=== PATIENT | male | born 1960 | race African-American/Black ===

== ENCOUNTER 2018-08-19 15:15 | Inpatient (IN) | payer OTHER ==
[2018-08-19] MEDS ORDERED: PANTOPRAZOLE 40 MG/10 ML VIAL IVP STA (15:18)
[2018-08-19] MEDS ORDERED: ONDANSETRON 4 MG/2 ML VIAL IVP STA (15:18)
[2018-08-19] MEDS ORDERED: SODIUM CHLORIDE 0.9% 1,000 ML IV STA ×3 (15:18→16:09)
[2018-08-19 15:24] LABS: Glucose,Whole Blood 353 mg/dL (75-99)
--- NOTE | 2018-08-19 15:31 | ED ---
Syncope HPI - General Stated Complaint: Syncope/Vomiting Blood Time Seen by Provider: 08/19/18 15:18 Source: patient, RN notes reviewed, old records reviewed Mode of arrival: EMS Limitations: no limitations - History of Present Illness Initial Comments: This is a 58-year-old male to the ER for evaluation. Patient presents today for evaluation regards to weakness lightheadedness dizziness or syncopal event. Patient has history of recent ulcer disease with surgery, surgery was upper GI patient is not on blood thinners, denies any chest pain or shortness of breath, no current abdominal pain. No headaches. She does admit to a few alcoholic beverages piper ADAM Complaint: loss of consciousness, collapsed -: hour(s) Prodromal Symptoms: heart racing, diaphoresis -: second(s) Witnessed: no Injuries Sustained Associated with Event: None Current Symptoms: none History: other Context: at rest Treatments Prior to Arrival: none - Related Data Home Medications Medication Instructions Recorded Confirmed Albuterol Inhaler [Ventolin Hfa 2 puff INHALATION RT-Q6H PRN 08/19/18 08/19/18 Inhaler] Ferrous Sulfate [Iron (65 MG 325 mg PO BID 08/19/18 08/19/18 Elemental)] Finasteride [Proscar] 5 mg PO DAILY 08/19/18 08/19/18 QUEtiapine [SEROquel] 50 mg PO HS 08/19/18 08/19/18 Terazosin HCl 8 mg PO HS 08/19/18 08/19/18 metFORMIN HCL 500 mg PO BID 08/19/18 08/19/18 predniSONE 10 mg PO DAILY 08/19/18 08/19/18 Previous Rx's Medication Instructions Recorded Pantoprazole Sodium [Protonix] 40 mg PO DAILY #30 tablet. 08/22/18 Allergies Allergy/AdvReac Type Severity Reaction Status Date / Time No Known Allergies Allergy Verified 08/19/18 16:06 Review of Systems ROS Statement: Those systems with pertinent positive or pertinent negative responses have been documented in the HPI. ROS Other: All systems not noted in ROS Statement are negative. Past Medical History Past Medical History: GERD/Reflux Additional Past Medical History / Comment(s): STOMACH ULCER Past Surgical History: Unable to Obtain Past Psychological History: Unable to Obtain Smoking Status: Unknown if ever smoked Past Alcohol Use History: Occasional Past Drug Use History: Unable to Obtain - Past Family History Father Family Medical History: Diabetes Mellitus Additional Family Medical History / Comment(s): Father from diabetic complications at the age of 62 yrs. Mother Family Medical History: COPD General Exam Limitations: no limitations General appearance: alert, in no apparent distress Head exam: Present: atraumatic, normocephalic, normal inspection Eye exam: Present: normal appearance, PERRL, EOMI. Absent: scleral icterus, conjunctival injection, periorbital swelling ENT exam: Present: normal exam, mucous membranes dry Neck exam: Present: normal inspection. Absent: tenderness, meningismus, lymphadenopathy Respiratory exam: Present: normal lung sounds bilaterally. Absent: respiratory distress, wheezes, rales, rhonchi, stridor Cardiovascular Exam: Present: normal rhythm, tachycardia, normal heart sounds. Absent: systolic murmur, diastolic murmur, rubs, gallop, clicks GI/Abdominal exam: Present: soft, normal bowel sounds. Absent: distended, tenderness, guarding, rebound, rigid Extremities exam: Present: normal inspection, full ROM, normal capillary refill. Absent: tenderness, pedal edema, joint swelling, calf tenderness Back exam: Present: normal inspection Neurological exam: Present: alert, oriented X3, CN II-XII intact Psychiatric exam: Present: normal affect, normal mood Skin exam: Present: warm, dry, intact, normal color. Absent: rash Course Vital Signs 08/19/18 08/19/18 08/19/18 15:17 15:56 16:00 Temperature 97.8 F Pulse Rate 109 H 98 94 Respiratory 12 15 15 Rate Blood Pressure 71/43 84/51 84/51 O2 Sat by Pulse 100 100 99 Oximetry 08/19/18 08/19/18 08/19/18 16:30 16:50 17:00 Temperature Pulse Rate 98 97 Respiratory 16 Rate Blood Pressure 84/51 91/60 85/51 O2 Sat by Pulse 96 95 Oximetry 08/19/18 08/19/18 08/19/18 17:30 18:30 19:00 Temperature 97.8 F Pulse Rate 97 97 101 H Respiratory 20 20 Rate Blood Pressure 73/44 84/48 97/60 O2 Sat by Pulse 95 99 Oximetry 08/19/18 08/19/18 08/19/18 19:04 19:14 19:30 Temperature 97.9 F 97.8 F Pulse Rate 106 H 112 H 105 H Respiratory 16 18 Rate Blood Pressure 84/74 76/52 76/52 O2 Sat by Pulse Oximetry 08/19/18 08/19/18 08/19/18 20:00 20:30 21:10 Temperature 98 F Pulse Rate 107 H 111 H 126 H Respiratory 16 28 H Rate Blood Pressure 97/50 92/74 115/75 O2 Sat by Pulse 94 L 97 Oximetry 08/19/18 08/19/18 08/19/18 21:25 22:00 23:38 Temperature 98.1 F 98.9 F 102.9 F H Pulse Rate 124 H 126 H 141 H Respiratory 24 24 40 H Rate Blood Pressure 107/77 118/63 105/61 O2 Sat by Pulse 100 100 99 Oximetry 08/20/18 08/20/18 08/20/18 01:00 02:51 03:00 Temperature 101.6 F H 101.2 F H Pulse Rate 130 H 140 H 142 H Respiratory 20 Rate Blood Pressure 95/61 89/47 89/47 O2 Sat by Pulse 99 100 99 Oximetry 08/20/18 08/20/18 08/20/18 04:00 05:00 07:42 Temperature 98.8 F Pulse Rate 131 H 133 H 125 H Respiratory 28 H 22 Rate Blood Pressure 81/49 107/76 95/55 O2 Sat by Pulse 95 100 96 Oximetry 08/20/18 08/20/18 08/20/18 08:45 09:00 11:00 Temperature 98.4 F 98.6 F Pulse Rate 120 H 126 H 123 H Respiratory 18 18 Rate Blood Pressure 115/77 108/66 O2 Sat by Pulse 94 L 94 L 92 L Oximetry 08/20/18 08/20/18 08/20/18 12:00 13:00 13:04 Temperature Pulse Rate 128 H 112 H 120 H Respiratory Rate Blood Pressure 109/64 112/56 O2 Sat by Pulse 97 98 Oximetry 08/20/18 08/20/18 08/20/18 13:14 14:00 15:00 Temperature Pulse Rate 118 H 122 H 123 H Respiratory 28 H Rate Blood Pressure 122/71 127/69 O2 Sat by Pulse 95 96 Oximetry - Reevaluation(s) Reevaluation #1: Record is reviewed patient's heart rate and blood pressures responsive to fluid challenge Patient's at this time states he feels much improved Blood pressure continues to be labile patient will be transfused EKG Findings - EKG Comments: EKG Findings:: EKG shows sinus tachycardia rate 121, NV 120, QRS 80, QTC 471 Medical Decision Making - Medical Decision Making 38 male the ER for evaluation of recent history of known ulcer disease with vomiting blood. [facility] During this event patient became very lightheaded and passed out, patient's but was brought in by EMS, patient was found to have low hemoglobin and asymptomatic , patient will be transfused and admitted for intensive care monitoring - Lab Data Result diagrams: 08/22/18 06:48 08/22/18 06:48 Lab Results 08/19/18 08/19/18 08/19/18 Range/Units 15:20 15:20 15:20 WBC 15.7 H (3.8-10.6) k/uL RBC 2.32 L (4.30-5.90) m/uL Hgb 7.1 L (13.0-17.5) gm/dL Hct 22.9 L (39.0-53.0) % MCV 98.6 (80.0-100.0) fL MCH 30.7 (25.0-35.0) pg MCHC 31.1 (31.0-37.0) g/dL RDW 14.3 (11.5-15.5) % Plt Count 376 (150-450) k/uL Neutrophils % 62 % Lymphocytes % 32 % Monocytes % 4 % Eosinophils % 1 % Basophils % 0 % Neutrophils # 9.7 H (1.3-7.7) k/uL Lymphocytes # 5.0 H (1.0-4.8) k/uL Monocytes # 0.6 (0-1.0) k/uL Eosinophils # 0.1 (0-0.7) k/uL Basophils # 0.0 (0-0.2) k/uL Manual Slide Review Performed Polychromasia Present Hypochromasia Slight Poikilocytosis (manual Present Sodium 133 L (137-145) mmol/L Potassium 4.0 (3.5-5.1) mmol/L Chloride 104 (98-107) mmol/L Carbon Dioxide 12 L (22-30) mmol/L Anion Gap 17 mmol/L BUN 21 H (9-20) mg/dL Creatinine 1.49 H (0.66-1.25) mg/dL Est GFR (CKD-EPI)AfAm 60 (>60 ml/min/1.73 sqM) Est GFR (CKD-EPI)NonAf 52 (>60 ml/min/1.73 sqM) Glucose 331 H (74-99) mg/dL POC Glucose (mg/dL) (75-99) mg/dL POC Glu Gran[employer] ID Calcium 8.5 (8.4-10.2) mg/dL Magnesium 1.9 (1.6-2.3) mg/dL Total Bilirubin 0.2 (0.2-1.3) mg/dL AST 22 (17-59) U/L ALT 17 L (21-72) U/L Alkaline Phosphatase 64 (38-126) U/L Total Creatine Kinase 106 (55-170) U/L CK-MB (CK-2) 0.9 (0.0-2.4) ng/mL CK-MB (CK-2) Rel Index 0.8 Troponin I <0.012 (0.000-0.034) ng/mL Total Protein 4.8 L (6.3-8.2) g/dL Albumin 2.7 L (3.5-5.0) g/dL Lipase 114 (23-300) U/L Urine Color Urine Appearance (Clear) Urine pH (5.0-8.0) Ur Specific [employer] (1.001-1.035) Urine Protein (Negative) Urine Glucose (UA) (Negative) Urine Ketones (Negative) Urine Blood (Negative) Urine Nitrite (Negative) Urine Bilirubin (Negative) Urine Urobilinogen (<2.0) mg/dL Ur Leukocyte Esterase (Negative) Urine Opiates Screen (NotDetected) Ur Oxycodone Screen (NotDetected) Urine Methadone Screen (NotDetected) Ur Propoxyphene Screen (NotDetected) Ur Barbiturates Screen (NotDetected) U Tricyclic Antidepress (NotDetected) Ur Phencyclidine Scrn (NotDetected) Ur Amphetamines Screen (NotDetected) U Methamphetamines Scrn (NotDetected) U Benzodiazepines Scrn (NotDetected) Urine Cocaine Screen (NotDetected) U Marijuana (THC) Screen (NotDetected) Acetone, Qual (Negative) Blood Type Blood Type Recheck Antibody Screen Crossmatch Spec Expiration Date 08/19/18 08/19/18 08/19/18 Range/Units 15:20 15:20 15:23 WBC (3.8-10.6) k/uL RBC (4.30-5.90) m/uL Hgb (13.0-17.5) gm/dL Hct (39.0-53.0) % MCV (80.0-100.0) fL MCH (25.0-35.0) pg MCHC (31.0-37.0) g/dL RDW (11.5-15.5) % Plt Count (150-450) k/uL Neutrophils % % Lymphocytes % % Monocytes % % Eosinophils % % Basophils % % Neutrophils # (1.3-7.7) k/uL Lymphocytes # (1.0-4.8) k/uL Monocytes # (0-1.0) k/uL Eosinophils # (0-0.7) k/uL Basophils # (0-0.2) k/uL Manual Slide Review Polychromasia Hypochromasia Poikilocytosis (manual Sodium (137-145) mmol/L Potassium (3.5-5.1) mmol/L Chloride (98-107) mmol/L Carbon Dioxide (22-30) mmol/L Anion Gap mmol/L BUN (9-20) mg/dL Creatinine (0.66-1.25) mg/dL Est GFR (CKD-EPI)AfAm (>60 ml/min/1.73 sqM) Est GFR (CKD-EPI)NonAf (>60 ml/min/1.73 sqM) Glucose (74-99) mg/dL POC Glucose (mg/dL) 353 H (75-99) mg/dL POC Glu [employer] ID Ridge, Shobha Calcium (8.4-10.2) mg/dL Magnesium (1.6-2.3) mg/dL Total Bilirubin (0.2-1.3) mg/dL AST (17-59) U/L ALT (21-72) U/L Alkaline Phosphatase (38-126) U/L Total Creatine Kinase (55-170) U/L CK-MB (CK-2) (0.0-2.4) ng/mL CK-MB (CK-2) Rel Index Troponin I (0.000-0.034) ng/mL Total Protein (6.3-8.2) g/dL Albumin (3.5-5.0) g/dL Lipase (23-300) U/L Urine Color Urine Appearance (Clear) Urine pH (5.0-8.0) Ur Specific [employer] (1.001-1.035) Urine Protein (Negative) Urine Glucose (UA) (Negative) Urine Ketones (Negative) Urine Blood (Negative) Urine Nitrite (Negative) Urine Bilirubin (Negative) Urine Urobilinogen (<2.0) mg/dL Ur Leukocyte Esterase (Negative) Urine Opiates Screen (NotDetected) Ur Oxycodone Screen (NotDetected) Urine Methadone Screen (NotDetected) Ur Propoxyphene Screen (NotDetected) Ur Barbiturates Screen (NotDetected) U Tricyclic Antidepress (NotDetected) Ur Phencyclidine Scrn (NotDetected) Ur Amphetamines Screen (NotDetected) U Methamphetamines Scrn (NotDetected) U Benzodiazepines Scrn (NotDetected) Urine Cocaine Screen (NotDetected) U Marijuana (THC) Screen (NotDetected) Acetone, Qual Negative (Negative) Blood Type A Positive Blood Type Recheck CABO Indicated Antibody Screen NEGATIVE Crossmatch See Detail Spec Expiration Date 08/22/2018231908/19/18 Range/Units 15:25 WBC (3.8-10.6) k/uL RBC (4.30-5.90) m/uL Hgb (13.0-17.5) gm/dL Hct (39.0-53.0) % MCV (80.0-100.0) fL MCH (25.0-35.0) pg MCHC (31.0-37.0) g/dL RDW (11.5-15.5) % Plt Count (150-450) k/uL Neutrophils % % Lymphocytes % % Monocytes % % Eosinophils % % Basophils % % Neutrophils # (1.3-7.7) k/uL Lymphocytes # (1.0-4.8) k/uL Monocytes # (0-1.0) k/uL Eosinophils # (0-0.7) k/uL Basophils # (0-0.2) k/uL Manual Slide Review Polychromasia Hypochromasia Poikilocytosis (manual Sodium (137-145) mmol/L Potassium (3.5-5.1) mmol/L Chloride (98-107) mmol/L Carbon Dioxide (22-30) mmol/L Anion Gap mmol/L BUN (9-20) mg/dL Creatinine (0.66-1.25) mg/dL Est GFR (CKD-EPI)AfAm (>60 ml/min/1.73 sqM) Est GFR (CKD-EPI)NonAf (>60 ml/min/1.73 sqM) Glucose (74-99) mg/dL POC Glucose (mg/dL) (75-99) mg/dL POC Glu [employer] ID Calcium (8.4-10.2) mg/dL Magnesium (1.6-2.3) mg/dL Total Bilirubin (0.2-1.3) mg/dL AST (17-59) U/L ALT (21-72) U/L Alkaline Phosphatase (38-126) U/L Total Creatine Kinase (55-170) U/L CK-MB (CK-2) (0.0-2.4) ng/mL CK-MB (CK-2) Rel Index Troponin I (0.000-0.034) ng/mL Total Protein (6.3-8.2) g/dL Albumin (3.5-5.0) g/dL Lipase (23-300) U/L Urine Color Light Yellow Urine Appearance Clear (Clear) Urine pH 5.5 (5.0-8.0) Ur Specific [employer] 1.012 (1.001-1.035) Urine Protein Negative (Negative) Urine Glucose (UA) 4+ H (Negative) Urine Ketones Negative (Negative) Urine Blood Negative (Negative) Urine Nitrite Negative (Negative) Urine Bilirubin Negative (Negative) Urine Urobilinogen <2.0 (<2.0) mg/dL Ur Leukocyte Esterase Negative (Negative) Urine Opiates Screen Detected H (NotDetected) Ur Oxycodone Screen Not Detected (NotDetected) Urine Methadone Screen Not Detected (NotDetected) Ur Propoxyphene Screen Not Detected (NotDetected) Ur Barbiturates Screen Not Detected (NotDetected) U Tricyclic Antidepress Not Detected (NotDetected) Ur Phencyclidine Scrn Not Detected (NotDetected) Ur Amphetamines Screen Not Detected (NotDetected) U Methamphetamines Scrn Not Detected (NotDetected) U Benzodiazepines Scrn Not Detected (NotDetected) Urine Cocaine Screen Detected H (NotDetected) U Marijuana (THC) Screen Not Detected (NotDetected) Acetone, Qual (Negative) Blood Type Blood Type Recheck Antibody Screen Crossmatch Spec Expiration Date - Radiology Data Radiology results: report reviewed (CTA chest is negative for acute disease), image reviewed Critical Care Time Critical Care Time: Yes Total Critical Care Time: 31 Disposition Clinical Impression: Vasovagal syncope, Anemia, GI bleed Disposition: ADMITTED IP TO THIS [facility] Condition: Fair Is patient prescribed a controlled substance at d/c from ED?: No
[2018-08-19 15:44] LABS: Appearance,Urine Clear (Clear); Bilirubin,Urine Negative (Negative); Blood,Urine Negative (Negative); Color,Urine Light Yellow; Glucose,Urine (UA) 4+ (Negative); Ketones,Urine Negative (Negative); Leukocyte Esterase,Urine Negative (Negative); Nitrite,Urine Negative (Negative); PH, Urine 5.5 (5.0-8.0); Protein,Urine Negative (Negative); Specific Gravity,Urine 1.012 (1.001-1.035); Urobilinogen,Urine <2.0 mg/dL (<2.0)
[2018-08-19 15:45] LABS: Basophils % (A) 0 %; Eosinophils # (A) 0.1 k/uL (0-0.7); Eosinophils % (A) 1 %; HCT 22.9 % (39.0-53.0); HGB 7.1 gm/dL (13.0-17.5); Hypochromasia Slight; Lymphocytes % (A) 32 %; MCH 30.7 pg (25.0-35.0); MCHC 31.1 g/dL (31.0-37.0); MCV 98.6 fL (80.0-100.0); Mean Platelet Volume 6.8; Monocytes # (A) 0.6 k/uL (0-1.0); Monocytes % (A) 4 %; Neutrophils # (A) 9.7 k/uL (1.3-7.7); Neutrophils % (A) 62 %; Platelet Count 376 k/uL (150-450); RBC 2.32 m/uL (4.30-5.90); RDW 14.3 % (11.5-15.5); WBC 15.7 k/uL (3.8-10.6)
[2018-08-19 15:55] LABS: Albumin 2.7 g/dL (3.5-5.0); Calcium 8.5 mg/dL (8.4-10.2); Magnesium 1.9 mg/dL (1.6-2.3); Total Bilirubin 0.2 mg/dL (0.2-1.3); Total Protein 4.8 g/dL (6.3-8.2)
[2018-08-19 15:56] LABS: Cocaine Screen,Urine Detected (NotDetected); Phencyclidine Screen,Urine Not Detected (NotDetected); Urn Cannabinoid Scrn Not Detected (NotDetected)
[2018-08-19 15:56] LABS: Creatine Kinase 106 U/L (55-170)
[2018-08-19 15:57] LABS: Amphetamine Screen,Urine Not Detected (NotDetected); Barbiturate Screen,Urine Not Detected (NotDetected); Benzodiazepines Screen,Urine Not Detected (NotDetected); Methadone Screen, Urine Not Detected (NotDetected); Opiate Screen,Urine Detected (NotDetected); Oxycodone Screen, Urine Not Detected (NotDetected); Tricyclic Antidepressant,Urine Not Detected (NotDetected)
[2018-08-19] MEDS ORDERED: SODIUM CHLORIDE 0.9% 500 ML 500 ML IV STA (16:09)
[2018-08-19 16:10] LABS: Creatine Kinase MB 0.9 ng/mL (0.0-2.4); Troponin I <0.012 ng/mL (0.000-0.034)
[2018-08-19] MEDS ORDERED: INSULIN REGULAR 100 UNIT/ML VIAL IV ONE (16:22)
[2018-08-19 16:42] LABS: Poikilocytosis (M) Present; Polychromasia Present
[2018-08-19] MEDS ORDERED: SODIUM CHLORIDE 0.9% 1,000 ML IV ONE (17:26)
[2018-08-19] MEDS ORDERED: ONDANSETRON 4 MG/2 ML VIAL IVP PRN (17:26)
[2018-08-19 18:37] LABS: Glucose,Whole Blood 263 mg/dL (75-99)
--- NOTE | 2018-08-19 18:38 | CT ---
EXAMINATION TYPE: CT angio chest DATE OF EXAM: 08/19/2018 6:16 PM COMPARISON: None HISTORY: syncope CT DLP: 280.8 mGycm Automated exposure control for dose reduction was used. CONTRAST: CTA scan of the thorax is performed with IV Contrast, patient injected with 75 mL of Isovue 370, pulm onary embolism protocol. There are 3-D post processed images.. FINDINGS: There is a dilated fluid-filled esophagus. There is coarse interstitial infiltrates throughout the jimmy ngs there is also bullous pulmonary emphysema. Thoracic aorta is intact without evidence of aneurysm or dissection. Stomach is dilated. There is coalescent infiltrate at the lung bases. There is no lalo cardial effusion. Heart is probably enlarged. I see no filling defects in the pulmonary arteries. The bony thorax is intact. IMPRESSION: NO EVIDENCE OF PULMONARY EMBOLISM. EXTENSIVE PULMONARY INFILTRATES COULD RELATE TO RDS. EMPHYSEMA. DILATED STOMACH AND ESOPHAGUS. THIS COULD RELATE TO SOME SIGNIFICANT GASTROPARESIS AND REFLUX..
[2018-08-19] MEDS ORDERED: PANTOPRAZOLE 40 MG/10 ML VIAL IVP ONE (18:45)
--- NOTE | 2018-08-19 18:47 | P.HPIM ---
History of Present Illness H&P Date: 08/19/18 Chief Complaint: Presyncope This is a 58-year-old male who presented to the emergency room with presyncope. History was provided by patient and his at bedside. Patient's informed me that they are visiting from [place]. Patient was recently hospitalized a few days ago on Thursday at the hospital and was counseled for an upper GI bleed where he underwent an EGD per his and she is not aware exactly of the findings. She was told that they ''fixed the problem''. Patient was visiting in town today and was still having dark stool ongoing since his discharge. Today, he had 2 margaritas and subsequently he started vomiting with bright red blood with his vomitus. He almost lost consciousness and he was brought to the emergency room for further evaluation. In the emergency room, patient was found to be in hemorrhagic shock with blood pressure of 70/40. He was evaluated by the ER physician. Patient was complaining of chest pain that twelve-lead EKG showed sinus tachycardia with no acute ischemic changes. ER physician elected to send the patient for a CT angiogram of the chest that the report is still pending. Upon my evaluation, patient is obviously in hemorrhagic shock. He is tachycardic with heart rate up to 140. Nursing staff or having hard time obtaining blood sample. I ordered 2 units of blood transfusion. I asked the covering ER physician for assistance insert a central line for better IV access. Patient placement will be changed to intensive care unit instead of the telemetry floor. Patient himself denies any abdominal pain. He denies substance abuse even though his urine toxicology screen was positive for cocaine. When asked his permission to talk about his head from his he gave me permission and then I confronted him that his urine was positive for cocaine that patient still denies. He admits however that he had 2 alcoholic drinks today. Review of Systems Review of system: 14 points review of systems were obtained and were negative except to what were mentioned in the HPI. Past Medical History Past Medical History: GERD/Reflux Additional Past Medical History / Comment(s): STOMACH ULCER Past Surgical History: Unable to Obtain Past Psychological History: Unable to Obtain Smoking Status: Unknown if ever smoked Past Alcohol Use History: Occasional Past Drug Use History: Unable to Obtain Medications and Allergies Home Medications Medication Instructions Recorded Confirmed Type Albuterol Inhaler [Ventolin Hfa 2 puff INHALATION RT-Q6H PRN 08/19/18 08/19/18 History Inhaler] Cyclobenzaprine [Flexeril] 10 mg PO BID 08/19/18 08/19/18 History Ferrous Sulfate [Feosol] 325 mg PO BID 08/19/18 08/19/18 History Finasteride [Proscar] 5 mg PO DAILY 08/19/18 08/19/18 History Lisinopril-Hctz 10-12.5 mg 1 tab PO DAILY 08/19/18 08/19/18 History [Zestoretic 10-12.5] Metoprolol Tartrate [Lopressor] 25 mg PO DAILY 08/19/18 08/19/18 History QUEtiapine [SEROquel] 50 mg PO HS 08/19/18 08/19/18 History Terazosin HCl 8 mg PO HS 08/19/18 08/19/18 History metFORMIN HCL 500 mg PO BID 08/19/18 08/19/18 History predniSONE 10 mg PO DAILY 08/19/18 08/19/18 History Allergies Allergy/AdvReac Type Severity Reaction Status Date / Time No Known Allergies Allergy Verified 08/19/18 16:06 Physical Exam Vitals: Vital Signs Temp Pulse Resp BP Pulse Ox 08/19/18 17:00 97 85/51 95 08/19/18 16:50 91/60 08/19/18 16:30 98 16 84/51 96 08/19/18 16:00 94 15 84/51 99 08/19/18 15:56 98 15 84/51 100 08/19/18 15:17 97.8 F 109 H 12 71/43 100 Intake and Output 08/19/18 08/19/18 08/19/18 06:59 14:59 22:59 Other: Weight 71.214 kg General: The patient is awake and alert, in no distress Eye: there is normal conjunctiva bilaterally. Neck: The neck is supple, there is no JVD. Cardiovascular: Normal S1-S2, no S3-S4, no murmurs. Respiratory: Lungs clear to auscultation bilaterally Gastrointestinal: Abdomen is slightly distended, nontender Musculoskeletal: There is no pedal edema. Neurological:. Speech is normal. Skin: Skin is warm and dry Results CBC & Chem 7: 08/19/18 15:20 08/19/18 15:20 Labs: Abnormal Lab Results - Last 24 Hours (Table) 08/19/18 08/19/18 08/19/18 Range/Units 15:20 15:20 15:20 WBC 15.7 H (3.8-10.6) k/uL RBC 2.32 L (4.30-5.90) m/uL Hgb 7.1 L (13.0-17.5) gm/dL Hct 22.9 L (39.0-53.0) % Neutrophils # 9.7 H (1.3-7.7) k/uL Lymphocytes # 5.0 H (1.0-4.8) k/uL Sodium 133 L (137-145) mmol/L Carbon Dioxide 12 L (22-30) mmol/L BUN 21 H (9-20) mg/dL Creatinine 1.49 H (0.66-1.25) mg/dL Glucose 331 H (74-99) mg/dL POC Glucose (mg/dL) (75-99) mg/dL ALT 17 L (21-72) U/L Total Protein 4.8 L (6.3-8.2) g/dL Albumin 2.7 L (3.5-5.0) g/dL Urine Glucose (UA) (Negative) Urine Opiates Screen (NotDetected) Urine Cocaine Screen (NotDetected) Crossmatch See Detail 08/19/18 08/19/18 Range/Units 15:23 15:25 WBC (3.8-10.6) k/uL RBC (4.30-5.90) m/uL Hgb (13.0-17.5) gm/dL Hct (39.0-53.0) % Neutrophils # (1.3-7.7) k/uL Lymphocytes # (1.0-4.8) k/uL Sodium (137-145) mmol/L Carbon Dioxide (22-30) mmol/L BUN (9-20) mg/dL Creatinine (0.66-1.25) mg/dL Glucose (74-99) mg/dL POC Glucose (mg/dL) 353 H (75-99) mg/dL ALT (21-72) U/L Total Protein (6.3-8.2) g/dL Albumin (3.5-5.0) g/dL Urine Glucose (UA) 4+ H (Negative) Urine Opiates Screen Detected H (NotDetected) Urine Cocaine Screen Detected H (NotDetected) Crossmatch Assessment and Plan Assessment: 1. Upper GI bleed 2. Hemorrhagic shock 3. Acute blood loss anemia 4. Acute kidney injury 5. History of peptic ulcer disease with recent EGD a week ago in [place]. We will reduce request medical record 6. History of essential hypertension 7. Type 2 diabetes we will continue sliding scale insulin 8. Substance abuse including cocaine Today, I have seen, evaluated, and examined the patient in the emergency room. I discussed the patient's condition with consultants including the roofer gypsum, GI, and general surgery. I requested the covering ER physician to help inserting a central line for better IV access. Patient has 2 peripheral IV currently. I ordered 2 units of blood transfusion. We will repeat hemoglobin after blood transfusion. Patient has already received one-time dose of IV Protonix 40 mg. I would give him an additional 40 mg now and continue twice daily after work. Protonix drip not available in this hospital. Patient received 3 L of fluid in the emergency room so far. Nothing by mouth for now. I would order computed tomography scan of the abdomen without contrast to be done after patient received blood transfusion Patient placement would be changed to intensive care unit. Today, I discussed the patient's condition with himself and his . I updated him that he is in a critical condition. I answered all of his questions a satisfaction.
--- NOTE | 2018-08-19 19:14 | XR ---
EXAMINATION TYPE: XR chest 1V portable DATE OF EXAM: 08/19/2018 COMPARISON: NONE HISTORY: Check line placement TECHNIQUE: Single frontal view of the chest is obtained. FINDINGS: There is right jugular catheter with the tip over the right atrium. There is no pneumothor ax. There is some patchy airspace infiltrate in the lower lung arvizu. There is no gross heart failur e. There is coarsening of the lung markings. IMPRESSION: Pulmonary fibrosis. Infiltrates at the lung bases. No gross heart failure. No pneumothor ax.
[2018-08-19 19:20] LABS: Prothrombin Time 9.6 sec (9.0-12.0)
[2018-08-19 19:26] LABS: Partial Thromboplastin Time 18.9 sec (22.0-30.0)
--- NOTE | 2018-08-19 19:31 | ED ---
Medical Decision Making - Lab Data Result diagrams: 08/19/18 15:20 08/19/18 15:20 Lab Results 08/19/18 08/19/18 08/19/18 Range/Units 15:20 15:20 15:20 WBC 15.7 H (3.8-10.6) k/uL RBC 2.32 L (4.30-5.90) m/uL Hgb 7.1 L (13.0-17.5) gm/dL Hct 22.9 L (39.0-53.0) % MCV 98.6 (80.0-100.0) fL MCH 30.7 (25.0-35.0) pg MCHC 31.1 (31.0-37.0) g/dL RDW 14.3 (11.5-15.5) % Plt Count 376 (150-450) k/uL Neutrophils % 62 % Lymphocytes % 32 % Monocytes % 4 % Eosinophils % 1 % Basophils % 0 % Neutrophils # 9.7 H (1.3-7.7) k/uL Lymphocytes # 5.0 H (1.0-4.8) k/uL Monocytes # 0.6 (0-1.0) k/uL Eosinophils # 0.1 (0-0.7) k/uL Basophils # 0.0 (0-0.2) k/uL Manual Slide Review Performed Polychromasia Present Hypochromasia Slight Poikilocytosis (manual Present Sodium 133 L (137-145) mmol/L Potassium 4.0 (3.5-5.1) mmol/L Chloride 104 (98-107) mmol/L Carbon Dioxide 12 L (22-30) mmol/L Anion Gap 17 mmol/L BUN 21 H (9-20) mg/dL Creatinine 1.49 H (0.66-1.25) mg/dL Est GFR (CKD-EPI)AfAm 60 (>60 ml/min/1.73 sqM) Est GFR (CKD-EPI)NonAf 52 (>60 ml/min/1.73 sqM) Glucose 331 H (74-99) mg/dL POC Glucose (mg/dL) (75-99) mg/dL POC Glu Casing Mixer ID Calcium 8.5 (8.4-10.2) mg/dL Magnesium 1.9 (1.6-2.3) mg/dL Total Bilirubin 0.2 (0.2-1.3) mg/dL AST 22 (17-59) U/L ALT 17 L (21-72) U/L Alkaline Phosphatase 64 (38-126) U/L Total Creatine Kinase 106 (55-170) U/L CK-MB (CK-2) 0.9 (0.0-2.4) ng/mL CK-MB (CK-2) Rel Index 0.8 Troponin I <0.012 (0.000-0.034) ng/mL Total Protein 4.8 L (6.3-8.2) g/dL Albumin 2.7 L (3.5-5.0) g/dL Lipase 114 (23-300) U/L Urine Color Urine Appearance (Clear) Urine pH (5.0-8.0) Ur Specific Marshall (1.001-1.035) Urine Protein (Negative) Urine Glucose (UA) (Negative) Urine Ketones (Negative) Urine Blood (Negative) Urine Nitrite (Negative) Urine Bilirubin (Negative) Urine Urobilinogen (<2.0) mg/dL Ur Leukocyte Esterase (Negative) Urine Opiates Screen (NotDetected) Ur Oxycodone Screen (NotDetected) Urine Methadone Screen (NotDetected) Ur Propoxyphene Screen (NotDetected) Ur Barbiturates Screen (NotDetected) U Tricyclic Antidepress (NotDetected) Ur Phencyclidine Scrn (NotDetected) Ur Amphetamines Screen (NotDetected) U Methamphetamines Scrn (NotDetected) U Benzodiazepines Scrn (NotDetected) Urine Cocaine Screen (NotDetected) U Marijuana (THC) Screen (NotDetected) Acetone, Qual (Negative) Blood Type Blood Type Recheck Antibody Screen Crossmatch Spec Expiration Date 08/19/18 08/19/18 08/19/18 Range/Units 15:20 15:20 15:23 WBC (3.8-10.6) k/uL RBC (4.30-5.90) m/uL Hgb (13.0-17.5) gm/dL Hct (39.0-53.0) % MCV (80.0-100.0) fL MCH (25.0-35.0) pg MCHC (31.0-37.0) g/dL RDW (11.5-15.5) % Plt Count (150-450) k/uL Neutrophils % % Lymphocytes % % Monocytes % % Eosinophils % % Basophils % % Neutrophils # (1.3-7.7) k/uL Lymphocytes # (1.0-4.8) k/uL Monocytes # (0-1.0) k/uL Eosinophils # (0-0.7) k/uL Basophils # (0-0.2) k/uL Manual Slide Review Polychromasia Hypochromasia Poikilocytosis (manual Sodium (137-145) mmol/L Potassium (3.5-5.1) mmol/L Chloride (98-107) mmol/L Carbon Dioxide (22-30) mmol/L Anion Gap mmol/L BUN (9-20) mg/dL Creatinine (0.66-1.25) mg/dL Est GFR (CKD-EPI)AfAm (>60 ml/min/1.73 sqM) Est GFR (CKD-EPI)NonAf (>60 ml/min/1.73 sqM) Glucose (74-99) mg/dL POC Glucose (mg/dL) 353 H (75-99) mg/dL POC Glu Casing Mixer ID Shobha Sabillon Calcium (8.4-10.2) mg/dL Magnesium (1.6-2.3) mg/dL Total Bilirubin (0.2-1.3) mg/dL AST (17-59) U/L ALT (21-72) U/L Alkaline Phosphatase (38-126) U/L Total Creatine Kinase (55-170) U/L CK-MB (CK-2) (0.0-2.4) ng/mL CK-MB (CK-2) Rel Index Troponin I (0.000-0.034) ng/mL Total Protein (6.3-8.2) g/dL Albumin (3.5-5.0) g/dL Lipase (23-300) U/L Urine Color Urine Appearance (Clear) Urine pH (5.0-8.0) Ur Specific Marshall (1.001-1.035) Urine Protein (Negative) Urine Glucose (UA) (Negative) Urine Ketones (Negative) Urine Blood (Negative) Urine Nitrite (Negative) Urine Bilirubin (Negative) Urine Urobilinogen (<2.0) mg/dL Ur Leukocyte Esterase (Negative) Urine Opiates Screen (NotDetected) Ur Oxycodone Screen (NotDetected) Urine Methadone Screen (NotDetected) Ur Propoxyphene Screen (NotDetected) Ur Barbiturates Screen (NotDetected) U Tricyclic Antidepress (NotDetected) Ur Phencyclidine Scrn (NotDetected) Ur Amphetamines Screen (NotDetected) U Methamphetamines Scrn (NotDetected) U Benzodiazepines Scrn (NotDetected) Urine Cocaine Screen (NotDetected) U Marijuana (THC) Screen (NotDetected) Acetone, Qual Negative (Negative) Blood Type A Positive Blood Type Recheck CABO Indicated Antibody Screen NEGATIVE Crossmatch See Detail Spec Expiration Date 08/22/2018 - 231908/19/18 Range/Units 15:25 WBC (3.8-10.6) k/uL RBC (4.30-5.90) m/uL Hgb (13.0-17.5) gm/dL Hct (39.0-53.0) % MCV (80.0-100.0) fL MCH (25.0-35.0) pg MCHC (31.0-37.0) g/dL RDW (11.5-15.5) % Plt Count (150-450) k/uL Neutrophils % % Lymphocytes % % Monocytes % % Eosinophils % % Basophils % % Neutrophils # (1.3-7.7) k/uL Lymphocytes # (1.0-4.8) k/uL Monocytes # (0-1.0) k/uL Eosinophils # (0-0.7) k/uL Basophils # (0-0.2) k/uL Manual Slide Review Polychromasia Hypochromasia Poikilocytosis (manual Sodium (137-145) mmol/L Potassium (3.5-5.1) mmol/L Chloride (98-107) mmol/L Carbon Dioxide (22-30) mmol/L Anion Gap mmol/L BUN (9-20) mg/dL Creatinine (0.66-1.25) mg/dL Est GFR (CKD-EPI)AfAm (>60 ml/min/1.73 sqM) Est GFR (CKD-EPI)NonAf (>60 ml/min/1.73 sqM) Glucose (74-99) mg/dL POC Glucose (mg/dL) (75-99) mg/dL POC Glu Casing Mixer ID Calcium (8.4-10.2) mg/dL Magnesium (1.6-2.3) mg/dL Total Bilirubin (0.2-1.3) mg/dL AST (17-59) U/L ALT (21-72) U/L Alkaline Phosphatase (38-126) U/L Total Creatine Kinase (55-170) U/L CK-MB (CK-2) (0.0-2.4) ng/mL CK-MB (CK-2) Rel Index Troponin I (0.000-0.034) ng/mL Total Protein (6.3-8.2) g/dL Albumin (3.5-5.0) g/dL Lipase (23-300) U/L Urine Color Light Yellow Urine Appearance Clear (Clear) Urine pH 5.5 (5.0-8.0) Ur Specific Marshall 1.012 (1.001-1.035) Urine Protein Negative (Negative) Urine Glucose (UA) 4+ H (Negative) Urine Ketones Negative (Negative) Urine Blood Negative (Negative) Urine Nitrite Negative (Negative) Urine Bilirubin Negative (Negative) Urine Urobilinogen <2.0 (<2.0) mg/dL Ur Leukocyte Esterase Negative (Negative) Urine Opiates Screen Detected H (NotDetected) Ur Oxycodone Screen Not Detected (NotDetected) Urine Methadone Screen Not Detected (NotDetected) Ur Propoxyphene Screen Not Detected (NotDetected) Ur Barbiturates Screen Not Detected (NotDetected) U Tricyclic Antidepress Not Detected (NotDetected) Ur Phencyclidine Scrn Not Detected (NotDetected) Ur Amphetamines Screen Not Detected (NotDetected) U Methamphetamines Scrn Not Detected (NotDetected) U Benzodiazepines Scrn Not Detected (NotDetected) Urine Cocaine Screen Detected H (NotDetected) U Marijuana (THC) Screen Not Detected (NotDetected) Acetone, Qual (Negative) Blood Type Blood Type Recheck Antibody Screen Crossmatch Spec Expiration Date Disposition Clinical Impression: Vasovagal syncope, Anemia, GI bleed Disposition: ADMITTED IP TO THIS [facility] Condition: Serious Procedures - Central Line Placement Right IJ Consent Obtained: written consent Time Out Performed: Yes Patient Placed on Monitor/Pulse Ox: Yes MD Prep: mask, gown, gloves, other Central Line Prep: Chlorhexidine scrub Local Anesthesia Used: Lidocaine 1% Amount of Anesthesia Used (mls): 3 Ultrasound Used for Placement: Yes Central Line Lumen Inserted: triple Bloods Obtained for Lab: Yes Central Line Position: good blood return, all ports aspirated, flushed, capped, sutured in place with nylon Dressing Applied: Tegaderm Post Procedure X-Ray: tip of catheter in good position Patient Tolerated Procedure: well Complications: none
[2018-08-20] MEDS ORDERED: SODIUM CHLORIDE 0.9% 1,000 ML IV STA (00:26)
[2018-08-20 00:46] LABS: Anisocytosis Slight; MCH 30.1 pg (25.0-35.0); MCHC 33.2 g/dL (31.0-37.0); MCV 90.6 fL (80.0-100.0); Mean Platelet Volume 7.3; RDW 18.2 % (11.5-15.5)
[2018-08-20 00:52] LABS: HCT 26.3 % (39.0-53.0); HGB 8.7 gm/dL (13.0-17.5); Platelet Count 151 k/uL (150-450)
[2018-08-20 02:19] LABS: Band Neutrophils % 9 %; Monocytes # (M) 0.19 k/uL (0-1.0); Neutrophils % (M) 83 %; Nucleated Red Blood Cells 1 /100 WBC (0-0); Total Cells Counted 200
[2018-08-20 02:20] LABS: Lymphocytes # (M) 0.66 k/uL (1.0-4.8); WBC 9.4 k/uL (3.8-10.6)
[2018-08-20 02:21] LABS: Polychromasia Present
[2018-08-20] MEDS: PANTOPRAZOLE 40 MG/10 ML VIAL IVP SCH ×2 (06:51→17:43)
[2018-08-20 08:20] LABS: Glucose,Whole Blood 251 mg/dL (75-99)
[2018-08-20] MEDS: INSULIN ASPART 100 UNIT/ML 1 ML 10 ML VIAL SQ SCH ×6 (08:24→22:15)
[2018-08-20] MEDS ORDERED: PANTOPRAZOLE 40 MG/10 ML VIAL IVP SCH (09:00)
[2018-08-20] MEDS ORDERED: IPRATROPIUM-ALBUTEROL 3 ML NEB INHALATION PRN (09:10)
--- NOTE | 2018-08-20 09:27 | P.GSCN ---
History of Present Illness Consult date: 08/20/18 Reason for Consult: GI bleed History of present illness: This a 58-year-old male who is visiting from [place]. Patient states that he underwent EGD with some sort of intervention for GI bleed on Thursday it was constant. He then drove to [place] to see his family. The patient developed upper GI bleeding yesterday. He was resuscitated in the emergency room and received one unit of packed red cell. Apparently had a transfusion reaction with during his second packed red cell transfusion. Patient's had no further evidence of GI bleed. He denies any significant abdominal pain. Past Medical History Past Medical History: Asthma, COPD, GERD/Reflux, GI Bleed, Pneumonia, Prostate Disorder Additional Past Medical History / Comment(s): Pt is from [place], here with his spouse visiting their son. He was hospitatlized last week with peptic ulcer with upper GI bleed/dark stools ever since, IDDM type II, BPH, low back pain. History of Any Multi-Drug Resistant Organisms: None Reported Past Surgical History: Unable to Obtain Additional Past Surgical History / Comment(s): EGD one week ago in [place], colonoscopy 2013 which pt states was normal. Past Anesthesia/Blood Transfusion Reactions: No Reported Reaction Additional Past Anesthesia/Blood Transfusion Reaction / Comm: Pt received blood 08/19/18 without reaction. Smoking Status: Current every day smoker - Past Family History Father Family Medical History: Diabetes Mellitus Additional Family Medical History / Comment(s): Father from diabetic complications at the age of 62 yrs. Mother Family Medical History: COPD Medications and Allergies Home Medications Medication Instructions Recorded Confirmed Type Albuterol Inhaler [Ventolin Hfa 2 puff INHALATION RT-Q6H PRN 08/19/18 08/19/18 History Inhaler] Cyclobenzaprine [Flexeril] 10 mg PO BID 08/19/18 08/19/18 History Ferrous Sulfate [Feosol] 325 mg PO BID 08/19/18 08/19/18 History Finasteride [Proscar] 5 mg PO DAILY 08/19/18 08/19/18 History Lisinopril-Hctz 10-12.5 mg 1 tab PO DAILY 08/19/18 08/19/18 History [Zestoretic 10-12.5] Metoprolol Tartrate [Lopressor] 25 mg PO DAILY 08/19/18 08/19/18 History QUEtiapine [SEROquel] 50 mg PO HS 08/19/18 08/19/18 History Terazosin HCl 8 mg PO HS 08/19/18 08/19/18 History metFORMIN HCL 500 mg PO BID 08/19/18 08/19/18 History predniSONE 10 mg PO DAILY 08/19/18 08/19/18 History Allergies Allergy/AdvReac Type Severity Reaction Status Date / Time No Known Allergies Allergy Verified 08/19/18 16:06 Surgical - Exam Vital Signs Temp Pulse Resp BP Pulse Ox 97.8 F 109 H 12 71/43 100 08/19/18 15:17 08/19/18 15:17 08/19/18 15:17 08/19/18 15:17 08/19/18 15:17 - General well developed, no distress - Eyes PERRL - ENT normal pinna - Neck no masses - Respiratory normal expansion - Cardiovascular Rhythm: regular - Abdomen Abdomen: soft, non tender Results - Labs 08/20/18 00:31 08/19/18 15:20 Abnormal Lab Results - Last 24 Hours (Table) 08/19/18 08/19/18 08/19/18 Range/Units 15:20 15:20 15:20 WBC 15.7 H (3.8-10.6) k/uL RBC 2.32 L (4.30-5.90) m/uL Hgb 7.1 L (13.0-17.5) gm/dL Hct 22.9 L (39.0-53.0) % RDW (11.5-15.5) % Neutrophils # 9.7 H (1.3-7.7) k/uL Neutrophils # (Manual) (1.3-7.7) k/uL Lymphocytes # 5.0 H (1.0-4.8) k/uL Lymphocytes # (Manual) (1.0-4.8) k/uL Nucleated RBCs (0-0) /100 WBC APTT (22.0-30.0) sec Sodium 133 L (137-145) mmol/L Carbon Dioxide 12 L (22-30) mmol/L BUN 21 H (9-20) mg/dL Creatinine 1.49 H (0.66-1.25) mg/dL Glucose 331 H (74-99) mg/dL POC Glucose (mg/dL) (75-99) mg/dL ALT 17 L (21-72) U/L Total Protein 4.8 L (6.3-8.2) g/dL Albumin 2.7 L (3.5-5.0) g/dL Urine Glucose (UA) (Negative) Urine Opiates Screen (NotDetected) Urine Cocaine Screen (NotDetected) Crossmatch See Detail 08/19/18 08/19/18 08/19/18 Range/Units 15:23 15:25 18:33 WBC (3.8-10.6) k/uL RBC (4.30-5.90) m/uL Hgb (13.0-17.5) gm/dL Hct (39.0-53.0) % RDW (11.5-15.5) % Neutrophils # (1.3-7.7) k/uL Neutrophils # (Manual) (1.3-7.7) k/uL Lymphocytes # (1.0-4.8) k/uL Lymphocytes # (Manual) (1.0-4.8) k/uL Nucleated RBCs (0-0) /100 WBC APTT (22.0-30.0) sec Sodium (137-145) mmol/L Carbon Dioxide (22-30) mmol/L BUN (9-20) mg/dL Creatinine (0.66-1.25) mg/dL Glucose (74-99) mg/dL POC Glucose (mg/dL) 353 H 263 H (75-99) mg/dL ALT (21-72) U/L Total Protein (6.3-8.2) g/dL Albumin (3.5-5.0) g/dL Urine Glucose (UA) 4+ H (Negative) Urine Opiates Screen Detected H (NotDetected) Urine Cocaine Screen Detected H (NotDetected) Crossmatch 08/19/18 08/20/18 08/20/18 Range/Units 18:47 00:31 08:16 WBC (3.8-10.6) k/uL RBC 2.90 L (4.30-5.90) m/uL Hgb 8.7 L D (13.0-17.5) gm/dL Hct 26.3 L (39.0-53.0) % RDW 18.2 H (11.5-15.5) % Neutrophils # (1.3-7.7) k/uL Neutrophils # (Manual) 8.60 H (1.3-7.7) k/uL Lymphocytes # (1.0-4.8) k/uL Lymphocytes # (Manual) 0.66 L (1.0-4.8) k/uL Nucleated RBCs 1 H (0-0) /100 WBC APTT 18.9 L (22.0-30.0) sec Sodium (137-145) mmol/L Carbon Dioxide (22-30) mmol/L BUN (9-20) mg/dL Creatinine (0.66-1.25) mg/dL Glucose (74-99) mg/dL POC Glucose (mg/dL) 251 H (75-99) mg/dL ALT (21-72) U/L Total Protein (6.3-8.2) g/dL Albumin (3.5-5.0) g/dL Urine Glucose (UA) (Negative) Urine Opiates Screen (NotDetected) Urine Cocaine Screen (NotDetected) Crossmatch Diabetes panel 08/19/18 Range/Units 15:20 Sodium 133 L (137-145) mmol/L Potassium 4.0 (3.5-5.1) mmol/L Chloride 104 (98-107) mmol/L Carbon Dioxide 12 L (22-30) mmol/L BUN 21 H (9-20) mg/dL Creatinine 1.49 H (0.66-1.25) mg/dL Glucose 331 H (74-99) mg/dL Calcium 8.5 (8.4-10.2) mg/dL AST 22 (17-59) U/L ALT 17 L (21-72) U/L Alkaline Phosphatase 64 (38-126) U/L Total Protein 4.8 L (6.3-8.2) g/dL Albumin 2.7 L (3.5-5.0) g/dL Calcium panel 08/19/18 Range/Units 15:20 Calcium 8.5 (8.4-10.2) mg/dL Albumin 2.7 L (3.5-5.0) g/dL Pituitary panel 08/19/18 Range/Units 15:20 Sodium 133 L (137-145) mmol/L Potassium 4.0 (3.5-5.1) mmol/L Chloride 104 (98-107) mmol/L Carbon Dioxide 12 L (22-30) mmol/L BUN 21 H (9-20) mg/dL Creatinine 1.49 H (0.66-1.25) mg/dL Glucose 331 H (74-99) mg/dL Calcium 8.5 (8.4-10.2) mg/dL Adrenal panel 08/19/18 Range/Units 15:20 Sodium 133 L (137-145) mmol/L Potassium 4.0 (3.5-5.1) mmol/L Chloride 104 (98-107) mmol/L Carbon Dioxide 12 L (22-30) mmol/L BUN 21 H (9-20) mg/dL Creatinine 1.49 H (0.66-1.25) mg/dL Glucose 331 H (74-99) mg/dL Calcium 8.5 (8.4-10.2) mg/dL Total Bilirubin 0.2 (0.2-1.3) mg/dL AST 22 (17-59) U/L ALT 17 L (21-72) U/L Alkaline Phosphatase 64 (38-126) U/L Total Protein 4.8 L (6.3-8.2) g/dL Albumin 2.7 L (3.5-5.0) g/dL Assessment and Plan Plan: history of GI bleed. Patient will be evaluated by GI for possible EGD with intervention. We'll remain on surgical standby.
--- NOTE | 2018-08-20 10:23 | P.CONS ---
History of Present Illness - Reason for Consult Consult date: 08/20/18 Upper GI bleeding - History of Present Illness The patient is a 58-year-old male who was brought to the emergency room because of a fainting episode. The patient is from [place] and was visiting family in [place]. He started to vomit bright red blood and fainted and was brought to the emergency room for further evaluation. The patient was evaluated on Thursday back in [place] for upper GI bleeding and had an endoscopy with endoscopic intervention. The patient the denied alcohol dependency or use of any specific medications. He had 2 margaritas before the onset of his symptoms prior to arriving to the emergency room. Apparently there was positive cocaine in his urine. CTA of the chest showed no evidence of pulmonary embolism. The esophagus and stomach were noted to be dilated. The patient had stated in the emergency room overnight waiting his bed in the intensive care unit. He was transfused. His hemoglobin is stable this morning at 8.5. Review of Systems Constitutional: Denies fever, chills or unintentional weight loss Neurologic: History of headaches for which he takes NSAIDs, no double vision or sensory or motor changes Cardiopulmonary: No chest pains, shortness of breath or palpitations Gastrointestinal: See present illness above Genitourinary: No hematuria, dysuria or frequency Skin: No rashes Endocrine: No polyuria or polydipsia Musculoskeletal: No joint complaints or swelling Hematologic: No bleeding tendency Psychiatric: No history of anxiety or depression Past Medical History Past Medical History: Asthma, COPD, GERD/Reflux, GI Bleed, Pneumonia, Prostate Disorder Additional Past Medical History / Comment(s): Pt is from [place], here with his spouse visiting their son. He was hospitatlized last week with peptic ulcer with upper GI bleed/dark stools ever since, IDDM type II, BPH, low back pain. History of Any Multi-Drug Resistant Organisms: None Reported Past Surgical History: Unable to Obtain Additional Past Surgical History / Comment(s): EGD one week ago in [place], colonoscopy 2013 which pt states was normal. Past Anesthesia/Blood Transfusion Reactions: No Reported Reaction Additional Past Anesthesia/Blood Transfusion Reaction / Comm: Pt received blood 08/19/18 without reaction. Smoking Status: Current every day smoker - Past Family History Father Family Medical History: Diabetes Mellitus Additional Family Medical History / Comment(s): Father from diabetic complications at the age of 62 yrs. Mother Family Medical History: COPD Medications and Allergies Home Medications Medication Instructions Recorded Confirmed Type Albuterol Inhaler [Ventolin Hfa 2 puff INHALATION RT-Q6H PRN 08/19/18 08/19/18 History Inhaler] Cyclobenzaprine [Flexeril] 10 mg PO BID 08/19/18 08/19/18 History Ferrous Sulfate [Feosol] 325 mg PO BID 08/19/18 08/19/18 History Finasteride [Proscar] 5 mg PO DAILY 08/19/18 08/19/18 History Lisinopril-Hctz 10-12.5 mg 1 tab PO DAILY 08/19/18 08/19/18 History [Zestoretic 10-12.5] Metoprolol Tartrate [Lopressor] 25 mg PO DAILY 08/19/18 08/19/18 History QUEtiapine [SEROquel] 50 mg PO HS 08/19/18 08/19/18 History Terazosin HCl 8 mg PO HS 08/19/18 08/19/18 History metFORMIN HCL 500 mg PO BID 08/19/18 08/19/18 History predniSONE 10 mg PO DAILY 08/19/18 08/19/18 History Allergies Allergy/AdvReac Type Severity Reaction Status Date / Time No Known Allergies Allergy Verified 08/19/18 16:06 Physical Exam Vitals: Vital Signs Temp Pulse Resp BP Pulse Ox 08/20/18 09:00 98.6 F 126 H 18 115/77 94 L 08/20/18 08:45 98.4 F 120 H 18 94 L 08/20/18 07:42 98.8 F 125 H 22 95/55 96 08/20/18 05:00 133 H 28 H 107/76 100 08/20/18 04:00 131 H 81/49 95 08/20/18 03:00 142 H 89/47 99 08/20/18 02:51 101.2 F H 140 H 20 89/47 100 08/20/18 01:00 101.6 F H 130 H 95/61 99 08/19/18 23:38 102.9 F H 141 H 40 H 105/61 99 08/19/18 22:00 98.9 F 126 H 24 118/63 100 08/19/18 21:25 98.1 F 124 H 24 107/77 100 08/19/18 21:10 98 F 126 H 28 H 115/75 97 08/19/18 20:30 111 H 16 92/74 94 L 08/19/18 20:00 107 H 97/50 08/19/18 19:30 105 H 76/52 08/19/18 19:14 97.8 F 112 H 18 76/52 08/19/18 19:04 97.9 F 106 H 16 84/74 08/19/18 19:00 97.8 F 101 H 97/60 08/19/18 18:30 97 20 84/48 99 08/19/18 17:30 97 20 73/44 95 08/19/18 17:00 97 85/51 95 08/19/18 16:50 91/60 08/19/18 16:30 98 16 84/51 96 08/19/18 16:00 94 15 84/51 99 08/19/18 15:56 98 15 84/51 100 08/19/18 15:17 97.8 F 109 H 12 71/43 100 Intake and Output 08/19/18 08/20/18 08/20/18 22:59 06:59 14:59 Intake Total 310 310 Output Total 2300 Balance 310 310 -2300 Intake: Blood Product 310 310 Rc As-1 Unit 310 [id number] Rc As-3 Unit 0 310 [id number] Output: Urine 2300 Other: Weight 71.214 kg General: Appeared stated age, very pleasant in no acute distress Head and neck: Normocephalic and atraumatic, conjunctivae pink and sclerae not icteric, mucous membranes moist and pink. No masses in the neck or clavicular shifts Lungs: Clear to auscultation with no dullness to percussion Heart: Regular, no abnormal sounds, murmurs, gallops or friction Abdomen: Soft, no masses or organomegalies. No tenderness, bowel sounds present Extremities: No clubbing, cyanosis or edema Neurologic: Alert and oriented 3. Cranial nerves grossly intact. No gross sensory or motor abnormalities Results CBC & Chem 7: 08/20/18 11:01 08/20/18 11:01 Labs: Abnormal Lab Results - Last 24 Hours (Table) 08/19/18 08/19/18 08/19/18 Range/Units 15:20 15:20 15:20 WBC 15.7 H (3.8-10.6) k/uL RBC 2.32 L (4.30-5.90) m/uL Hgb 7.1 L (13.0-17.5) gm/dL Hct 22.9 L (39.0-53.0) % RDW (11.5-15.5) % Neutrophils # 9.7 H (1.3-7.7) k/uL Neutrophils # (Manual) (1.3-7.7) k/uL Lymphocytes # 5.0 H (1.0-4.8) k/uL Lymphocytes # (Manual) (1.0-4.8) k/uL Nucleated RBCs (0-0) /100 WBC APTT (22.0-30.0) sec Sodium 133 L (137-145) mmol/L Carbon Dioxide 12 L (22-30) mmol/L BUN 21 H (9-20) mg/dL Creatinine 1.49 H (0.66-1.25) mg/dL Glucose 331 H (74-99) mg/dL POC Glucose (mg/dL) (75-99) mg/dL ALT 17 L (21-72) U/L Total Protein 4.8 L (6.3-8.2) g/dL Albumin 2.7 L (3.5-5.0) g/dL Urine Glucose (UA) (Negative) Urine Opiates Screen (NotDetected) Urine Cocaine Screen (NotDetected) Crossmatch See Detail 08/19/18 08/19/18 08/19/18 Range/Units 15:23 15:25 18:33 WBC (3.8-10.6) k/uL RBC (4.30-5.90) m/uL Hgb (13.0-17.5) gm/dL Hct (39.0-53.0) % RDW (11.5-15.5) % Neutrophils # (1.3-7.7) k/uL Neutrophils # (Manual) (1.3-7.7) k/uL Lymphocytes # (1.0-4.8) k/uL Lymphocytes # (Manual) (1.0-4.8) k/uL Nucleated RBCs (0-0) /100 WBC APTT (22.0-30.0) sec Sodium (137-145) mmol/L Carbon Dioxide (22-30) mmol/L BUN (9-20) mg/dL Creatinine (0.66-1.25) mg/dL Glucose (74-99) mg/dL POC Glucose (mg/dL) 353 H 263 H (75-99) mg/dL ALT (21-72) U/L Total Protein (6.3-8.2) g/dL Albumin (3.5-5.0) g/dL Urine Glucose (UA) 4+ H (Negative) Urine Opiates Screen Detected H (NotDetected) Urine Cocaine Screen Detected H (NotDetected) Crossmatch 08/19/18 08/20/18 08/20/18 Range/Units 18:47 00:31 08:16 WBC (3.8-10.6) k/uL RBC 2.90 L (4.30-5.90) m/uL Hgb 8.7 L D (13.0-17.5) gm/dL Hct 26.3 L (39.0-53.0) % RDW 18.2 H (11.5-15.5) % Neutrophils # (1.3-7.7) k/uL Neutrophils # (Manual) 8.60 H (1.3-7.7) k/uL Lymphocytes # (1.0-4.8) k/uL Lymphocytes # (Manual) 0.66 L (1.0-4.8) k/uL Nucleated RBCs 1 H (0-0) /100 WBC APTT 18.9 L (22.0-30.0) sec Sodium (137-145) mmol/L Carbon Dioxide (22-30) mmol/L BUN (9-20) mg/dL Creatinine (0.66-1.25) mg/dL Glucose (74-99) mg/dL POC Glucose (mg/dL) 251 H (75-99) mg/dL ALT (21-72) U/L Total Protein (6.3-8.2) g/dL Albumin (3.5-5.0) g/dL Urine Glucose (UA) (Negative) Urine Opiates Screen (NotDetected) Urine Cocaine Screen (NotDetected) Crossmatch Assessment and Plan Assessment: Upper GI bleeding, recurrent, may need endoscopic intervention. Anemia secondary to bleeding. Plan: Will proceed with EGD today.
--- NOTE | 2018-08-20 11:28 | P.CNPUL ---
History of Present Illness Consult date: 08/20/18 Requesting physician: Sivlano Kemp Reason for consult: other Chief complaint: Presyncopal episode, tachycardia, anemia, acute GI bleed History of present illness: This is a 58-year-old male, who presented to the emergency department on 08/19/2018 for evaluation of presyncopal episode, tachycardia, diaphoresis. Patient is in the area from [place] visiting his family, was recently hospitalized [facility] for evaluation of acute blood loss anemia related to a gastric ulcer. He underwent EGD on Thursday08/16/2018, he stated a bleeding gastric ulcer was found, and it was reportedly "fixed". He had been having vomiting for 2 weeks prior to his hospitalization with bright red blood, and dark stools. He states he had been taking indomethacin for his history of arthritis for 2 years. Other medical history includes hypertension, diabetes mellitus type 2, COPD, nicotine dependence, chronic and ongoing, . Patient does see a grounds/maintenance specialist and [place], he wears 2 L of oxygen at bedtime as needed. Blood work showed WBC of 15.7, hemoglobin is 7.1, serum sodium 133, CO2 12, BUN of 21 and creatinine of 1.49. TRoponin was negative 1 , LFTs were unremarkable, urinalysis showed 4+ glucose, urine screen was positive for opiates, and cocaine. He denies any chronic EtOH use. In the emergency department she was transfused with 2 units of packed red blood cells, patient was tachycardic with a heart rate in the 140s BPM, and hypotensive with a blood pressure of 70/40, he was given 4 L of IV fluid boluses. Subsequent hemoglobin at midnight was 8.7. Patient was also febrile through the night, with a T-max of 102.[address] angios of the chest was negative for pulmonary embolism, but showed extensive pulmonary infiltrates throughout the lungs and bullous pulmonary emphysema. Chest x-ray showed pulmonary fibrosis, infiltrates at the lung bases. Patient does state he has pulmonary fibrosis. This morning patient was seen in the emergency department, resting on the gurney, denies any acute complaints, he remains tachycardic with a heart rate in the 120s, blood pressures are borderline 95/55, not requiring any vasopressor support at this time, denies any shortness of breath, chest pain, he has not had any solids of hematemesis, or melena since admission. Denies any abdominal pain, nausea. No cough, no chest congestion or phlegm production. No lightheadedness or dizziness. He is asking if he could make the trip home back to [place] today. He is awaiting to be evaluated by the GI specialist today and probably be boarded for EGD today. Review of Systems All systems: negative Constitutional: Denies chills, Denies fever Eyes: denies blurred vision, denies pain Ears, nose, mouth and throat: Denies headache, Denies sore throat Cardiovascular: Denies chest pain, Denies shortness of breath Respiratory: Reports home oxygen, Denies cough Gastrointestinal: Reports hematemesis, Reports melena, Denies abdominal pain, Denies diarrhea, Denies nausea, Denies vomiting Musculoskeletal: Denies myalgias Integumentary: Denies pruritus, Denies rash Neurological: Denies numbness, Denies weakness Psychiatric: Denies anxiety, Denies depression Endocrine: Denies fatigue, Denies weight change Past Medical History Past Medical History: Asthma, COPD, GERD/Reflux, GI Bleed, Pneumonia, Prostate Disorder Additional Past Medical History / Comment(s): Pt is from [place], here with his spouse visiting their son. He was hospitatlized last week with peptic ulcer with upper GI bleed/dark stools ever since, IDDM type II, BPH, low back pain. History of Any Multi-Drug Resistant Organisms: None Reported Past Surgical History: Unable to Obtain Additional Past Surgical History / Comment(s): EGD one week ago in [place], colonoscopy 2013 which pt states was normal. Past Anesthesia/Blood Transfusion Reactions: No Reported Reaction Additional Past Anesthesia/Blood Transfusion Reaction / Comment(s): Pt received blood 08/19/18 without reaction. Smoking Status: Current every day smoker - Past Family History Father Family Medical History: Diabetes Mellitus Additional Family Medical History / Comment(s): Father from diabetic complications at the age of 62 yrs. Mother Family Medical History: COPD Medications and Allergies Home Medications Medication Instructions Recorded Confirmed Type Albuterol Inhaler [Ventolin Hfa 2 puff INHALATION RT-Q6H PRN 08/19/18 08/19/18 History Inhaler] Cyclobenzaprine [Flexeril] 10 mg PO BID 08/19/18 08/19/18 History Ferrous Sulfate [Feosol] 325 mg PO BID 08/19/18 08/19/18 History Finasteride [Proscar] 5 mg PO DAILY 08/19/18 08/19/18 History Lisinopril-Hctz 10-12.5 mg 1 tab PO DAILY 08/19/18 08/19/18 History [Zestoretic 10-12.5] Metoprolol Tartrate [Lopressor] 25 mg PO DAILY 08/19/18 08/19/18 History QUEtiapine [SEROquel] 50 mg PO HS 08/19/18 08/19/18 History Terazosin HCl 8 mg PO HS 08/19/18 08/19/18 History metFORMIN HCL 500 mg PO BID 08/19/18 08/19/18 History predniSONE 10 mg PO DAILY 08/19/18 08/19/18 History Allergies Allergy/AdvReac Type Severity Reaction Status Date / Time No Known Allergies Allergy Verified 08/19/18 16:06 Physical Exam Vitals: Vital Signs Temp Pulse Resp BP Pulse Ox 08/20/18 07:42 98.8 F 125 H 22 95/55 96 08/20/18 05:00 133 H 28 H 107/76 100 08/20/18 04:00 131 H 81/49 95 08/20/18 03:00 142 H 89/47 99 08/20/18 02:51 101.2 F H 140 H 20 89/47 100 08/20/18 01:00 101.6 F H 130 H 95/61 99 08/19/18 23:38 102.9 F H 141 H 40 H 105/61 99 08/19/18 22:00 98.9 F 126 H 24 118/63 100 08/19/18 21:25 98.1 F 124 H 24 107/77 100 08/19/18 21:10 98 F 126 H 28 H 115/75 97 08/19/18 20:30 111 H 16 92/74 94 L 08/19/18 20:00 107 H 97/50 08/19/18 19:30 105 H 76/52 08/19/18 19:14 97.8 F 112 H 18 76/52 08/19/18 19:04 97.9 F 106 H 16 84/74 08/19/18 19:00 97.8 F 101 H 97/60 08/19/18 18:30 97 20 84/48 99 08/19/18 17:30 97 20 73/44 95 08/19/18 17:00 97 85/51 95 08/19/18 16:50 91/60 08/19/18 16:30 98 16 84/51 96 08/19/18 16:00 94 15 84/51 99 08/19/18 15:56 98 15 84/51 100 08/19/18 15:17 97.8 F 109 H 12 71/43 100 Intake and Output 08/19/18 08/20/18 08/20/18 22:59 06:59 14:59 Intake Total 310 310 Output Total 2300 Balance 310 310 -2300 Intake: Blood Product 310 310 Rc As-1 Unit 310 [id number] Rc As-3 Unit 0 310 [id number] Output: Urine 2300 Other: Weight 71.214 kg - Constitutional General appearance: no acute distress - EENT Eyes: EOMI - Neck Neck: no lymphadenopathy Thyroid: bilateral: normal size - Respiratory Respiratory: bilateral: diminished, rales - Cardiovascular Rhythm: regular Heart sounds: normal: S1, S2 ankle Peripheral Edema: absent: None foot Peripheral Edema: absent: None - Gastrointestinal General gastrointestinal: no organomegaly, soft, no tenderness - Integumentary Integumentary: normal turgor - Neurologic Neurologic: CNII-XII intact - Musculoskeletal Musculoskeletal: strength equal bilaterally - Psychiatric Psychiatric: A&O x's 3 Results - Laboratory Findings CBC and BMP: 08/20/18 00:31 08/19/18 15:20 PT/INR, D-dimer PT 9.6 sec (9.0-12.0) 08/19/18 18:47 INR 1.0 (<1.2) 08/19/18 18:47 Abnormal lab findings: Abnormal Labs 08/19/18 08/19/18 08/19/18 15:20 15:20 15:20 WBC 15.7 H RBC 2.32 L Hgb 7.1 L Hct 22.9 L RDW Neutrophils # 9.7 H Neutrophils # (Manual) Lymphocytes # 5.0 H Lymphocytes # (Manual) Nucleated RBCs APTT Sodium 133 L Carbon Dioxide 12 L BUN 21 H Creatinine 1.49 H Glucose 331 H POC Glucose (mg/dL) ALT 17 L Total Protein 4.8 L Albumin 2.7 L Urine Glucose (UA) Urine Opiates Screen Urine Cocaine Screen Crossmatch See Detail 08/19/18 08/19/18 08/19/18 15:23 15:25 18:33 WBC RBC Hgb Hct RDW Neutrophils # Neutrophils # (Manual) Lymphocytes # Lymphocytes # (Manual) Nucleated RBCs APTT Sodium Carbon Dioxide BUN Creatinine Glucose POC Glucose (mg/dL) 353 H 263 H ALT Total Protein Albumin Urine Glucose (UA) 4+ H Urine Opiates Screen Detected H Urine Cocaine Screen Detected H Crossmatch 08/19/18 08/20/18 08/20/18 18:47 00:31 08:16 WBC RBC 2.90 L Hgb 8.7 L D Hct 26.3 L RDW 18.2 H Neutrophils # Neutrophils # (Manual) 8.60 H Lymphocytes # Lymphocytes # (Manual) 0.66 L Nucleated RBCs 1 H APTT 18.9 L Sodium Carbon Dioxide BUN Creatinine Glucose POC Glucose (mg/dL) 251 H ALT Total Protein Albumin Urine Glucose (UA) Urine Opiates Screen Urine Cocaine Screen Crossmatch - Diagnostic Findings Chest x-ray: report reviewed, image reviewed CT scan - chest: report reviewed, image reviewed Additional studies: EKG reviewed Assessment and Plan Plan: Assessment: #1. Hemorrhagic shock related to acute blood loss anemia secondary to acute GI bleeding #2. Recent hospitalization for upper GI bleeding, status post EGD and cauterization of a gastric ulcer #3. Presyncopal episode, tachycardia, hypotension dated to the above #4. Advanced COPD, oxygen and steroid dependent #5. Nicotine dependence, chronic and ongoing, currently down to quarter pack a day, carries [id number] smoking history #6. Acute kidney injury #7. Anion gap metabolic acidosis #8. Hypertension #9. Diabetes mellitus type 2 #10. Rheumatoid arthritis, and patient had been on indomethacin for 2 years prior to last episode of GI bleed #11. History of pulmonary fibrosis Plan: Continue serial H&H's, continue IV Protonix, fluids infusing at 75 ML per hour, patient is awaiting a bed in the intensive care unit. GI service has been consulted. Patient did have some febrile episodes overnight, and CT chest showed interstitial infiltrates. Wean FiO2. Patient denies any shortness of breath, chest pain, cough, chest congestion. We will order nebulized bronchodilator and place the patient on IV Solu-Medrol at 40 mg every 8 hours. Chest x-ray and CT angios of the chest have been reviewed by Dr. Murillo, and there is evidence of interstitial lung disease, related to pulmonary fibrosis I performed a history & physical examination of the patient and discussed their management with my nurse practitioner, Swathi Reynaga. I reviewed the nurse practitioner's note and agree with the documented findings and plan of care. Lung sounds are coarse rales at the bases. The findings and the impression was discussed with the patient. I attest to the documentation by the nurse practitioner. Time with Patient: Greater than 30
[2018-08-20] MEDS ORDERED: methylPREDNISolone SOD SUCCI 40 MG/ML 1 ML VIAL IV SCH (11:30)
[2018-08-20 11:42] LABS: Anisocytosis Slight; Basophils # (A) 0.1 k/uL (0-0.2); Basophils % (A) 0 %; Eosinophils # (A) 0.1 k/uL (0-0.7); Eosinophils % (A) 0 %; HGB 9.2 gm/dL (13.0-17.5); Lymphocytes # (A) 1.9 k/uL (1.0-4.8); Lymphocytes % (A) 8 %; MCH 29.8 pg (25.0-35.0); MCHC 32.9 g/dL (31.0-37.0); MCV 90.5 fL (80.0-100.0); Mean Platelet Volume 6.9; Monocytes # (A) 0.7 k/uL (0-1.0); Monocytes % (A) 3 %; Neutrophils # (A) 20.5 k/uL (1.3-7.7); Neutrophils % (A) 88 %; Platelet Count 151 k/uL (150-450); Poikilocytosis Slight; RBC 3.09 m/uL (4.30-5.90); RDW 19.4 % (11.5-15.5); WBC 23.4 k/uL (3.8-10.6)
[2018-08-20 11:44] LABS: ALT 27 U/L (21-72); AST 34 U/L (17-59); Albumin 2.6 g/dL (3.5-5.0); Alkaline Phosphatase 59 U/L (38-126); Anion Gap 5 mmol/L; Blood Urea Nitrogen 25 mg/dL (9-20); Calcium 8.4 mg/dL (8.4-10.2); Carbon Dioxide 22 mmol/L (22-30); Chloride 112 mmol/L (98-107); Glucose 159 mg/dL (74-99); Magnesium 1.6 mg/dL (1.6-2.3); Potassium 3.9 mmol/L (3.5-5.1); Sodium 139 mmol/L (137-145); Total Bilirubin 1.2 mg/dL (0.2-1.3); Total Protein 4.8 g/dL (6.3-8.2)
--- NOTE | 2018-08-20 12:45 | P.PN ---
Subjective Progress Note Date: 08/20/18 Principal diagnosis: Hemorrhagic shock Patient is feeling better today. Blood pressure has improved. The status 2 units of blood transfusion. He remained tachycardic with heart rate up to 125. No bloody emesis or bowel movements since admission. Objective - Vital Signs Vital signs: Vital Signs Temp 98.6 F 08/20/18 09:00 Pulse 126 H 08/20/18 09:00 Resp 18 08/20/18 09:00 BP 115/77 08/20/18 09:00 Pulse Ox 94 L 08/20/18 09:00 Intake & Output 08/19/18 08/20/18 08/20/18 18:59 06:59 18:59 Intake Total 620 Output Total 2300 Balance 620 -2300 Weight 71.214 kg Intake: Blood Product 620 Rc As-1 Unit 310 [id number] Rc As-3 Unit 310 [id number] Output: Urine 2300 - Exam General: The patient is awake and alert, in no distress Eye: there is normal conjunctiva bilaterally. Neck: The neck is supple, there is no JVD. Cardiovascular: Normal S1-S2, no S3-S4, no murmurs. Respiratory: Lungs clear to auscultation bilaterally Gastrointestinal: Abdomen is soft, nontender Musculoskeletal: There is no pedal edema. Neurological:. Speech is normal. Skin: Skin is warm and dry - Labs CBC & Chem 7: 08/20/18 11:01 08/20/18 11:01 Labs: Abnormal Lab Results - Last 24 Hours (Table) 08/19/18 08/19/18 08/19/18 Range/Units 15:20 15:20 15:20 WBC 15.7 H (3.8-10.6) k/uL RBC 2.32 L (4.30-5.90) m/uL Hgb 7.1 L (13.0-17.5) gm/dL Hct 22.9 L (39.0-53.0) % RDW (11.5-15.5) % Neutrophils # 9.7 H (1.3-7.7) k/uL Neutrophils # (Manual) (1.3-7.7) k/uL Lymphocytes # 5.0 H (1.0-4.8) k/uL Lymphocytes # (Manual) (1.0-4.8) k/uL Nucleated RBCs (0-0) /100 WBC APTT (22.0-30.0) sec Sodium 133 L (137-145) mmol/L Chloride (98-107) mmol/L Carbon Dioxide 12 L (22-30) mmol/L BUN 21 H (9-20) mg/dL Creatinine 1.49 H (0.66-1.25) mg/dL Glucose 331 H (74-99) mg/dL POC Glucose (mg/dL) (75-99) mg/dL ALT 17 L (21-72) U/L Total Protein 4.8 L (6.3-8.2) g/dL Albumin 2.7 L (3.5-5.0) g/dL Urine Glucose (UA) (Negative) Urine Opiates Screen (NotDetected) Urine Cocaine Screen (NotDetected) Crossmatch See Detail 08/19/18 08/19/18 08/19/18 Range/Units 15:23 15:25 18:33 WBC (3.8-10.6) k/uL RBC (4.30-5.90) m/uL Hgb (13.0-17.5) gm/dL Hct (39.0-53.0) % RDW (11.5-15.5) % Neutrophils # (1.3-7.7) k/uL Neutrophils # (Manual) (1.3-7.7) k/uL Lymphocytes # (1.0-4.8) k/uL Lymphocytes # (Manual) (1.0-4.8) k/uL Nucleated RBCs (0-0) /100 WBC APTT (22.0-30.0) sec Sodium (137-145) mmol/L Chloride (98-107) mmol/L Carbon Dioxide (22-30) mmol/L BUN (9-20) mg/dL Creatinine (0.66-1.25) mg/dL Glucose (74-99) mg/dL POC Glucose (mg/dL) 353 H 263 H (75-99) mg/dL ALT (21-72) U/L Total Protein (6.3-8.2) g/dL Albumin (3.5-5.0) g/dL Urine Glucose (UA) 4+ H (Negative) Urine Opiates Screen Detected H (NotDetected) Urine Cocaine Screen Detected H (NotDetected) Crossmatch 08/19/18 08/20/18 08/20/18 Range/Units 18:47 00:31 08:16 WBC (3.8-10.6) k/uL RBC 2.90 L (4.30-5.90) m/uL Hgb 8.7 L D (13.0-17.5) gm/dL Hct 26.3 L (39.0-53.0) % RDW 18.2 H (11.5-15.5) % Neutrophils # (1.3-7.7) k/uL Neutrophils # (Manual) 8.60 H (1.3-7.7) k/uL Lymphocytes # (1.0-4.8) k/uL Lymphocytes # (Manual) 0.66 L (1.0-4.8) k/uL Nucleated RBCs 1 H (0-0) /100 WBC APTT 18.9 L (22.0-30.0) sec Sodium (137-145) mmol/L Chloride (98-107) mmol/L Carbon Dioxide (22-30) mmol/L BUN (9-20) mg/dL Creatinine (0.66-1.25) mg/dL Glucose (74-99) mg/dL POC Glucose (mg/dL) 251 H (75-99) mg/dL ALT (21-72) U/L Total Protein (6.3-8.2) g/dL Albumin (3.5-5.0) g/dL Urine Glucose (UA) (Negative) Urine Opiates Screen (NotDetected) Urine Cocaine Screen (NotDetected) Crossmatch 08/20/18 08/20/18 Range/Units 11:01 11:01 WBC 23.4 H (3.8-10.6) k/uL RBC 3.09 L (4.30-5.90) m/uL Hgb 9.2 L (13.0-17.5) gm/dL Hct 28.0 L (39.0-53.0) % RDW 19.4 H (11.5-15.5) % Neutrophils # 20.5 H (1.3-7.7) k/uL Neutrophils # (Manual) (1.3-7.7) k/uL Lymphocytes # (1.0-4.8) k/uL Lymphocytes # (Manual) (1.0-4.8) k/uL Nucleated RBCs (0-0) /100 WBC APTT (22.0-30.0) sec Sodium (137-145) mmol/L Chloride 112 H (98-107) mmol/L Carbon Dioxide (22-30) mmol/L BUN 25 H (9-20) mg/dL Creatinine (0.66-1.25) mg/dL Glucose 159 H (74-99) mg/dL POC Glucose (mg/dL) (75-99) mg/dL ALT (21-72) U/L Total Protein 4.8 L (6.3-8.2) g/dL Albumin 2.6 L (3.5-5.0) g/dL Urine Glucose (UA) (Negative) Urine Opiates Screen (NotDetected) Urine Cocaine Screen (NotDetected) Crossmatch Assessment and Plan Assessment: 1. Upper GI bleed 2. Hemorrhagic shock 3. Acute blood loss anemia 4. Acute kidney injury: Now resolved. Secondary to intravascular depletion. 5. History of peptic ulcer disease with recent EGD a week ago in [place]. We will reduce request medical record 6. History of essential hypertension 7. Type 2 diabetes we will continue sliding scale insulin 8. Substance abuse including cocaine Patient remained in the emergency room awaiting ICU bed. He is hemodynamically stable but still tachycardic. No evidence of further bleed. Seen and evaluated by GI and general surgery. Plan for EGD today. Continue nothing by mouth for now. IV Protonix twice daily. Repeat lab work in the morning.
[2018-08-20] MEDS: IPRATROPIUM-ALBUTEROL 3 ML NEB INHALATION SCH ×2 (13:02→19:34)
[2018-08-20 14:33] LABS: Glucose,Whole Blood 174 mg/dL (75-99)
[2018-08-20 17:28] LABS: Glucose,Whole Blood 149 mg/dL (75-99)
[2018-08-20] MEDS: HYDROcodone/APAP 5-325MG 1 EACH TAB PO PRN (17:41)
[2018-08-20 20:36] LABS: Glucose,Whole Blood 215 mg/dL (75-99)
[2018-08-21 07:15] LABS: Glucose,Whole Blood 153 mg/dL (75-99)
[2018-08-21] MEDS ORDERED: IV FLUID CONTINUATION 1,000 ML IV ONE (07:30)
[2018-08-21] MEDS: IPRATROPIUM-ALBUTEROL 3 ML NEB INHALATION SCH ×3 (07:37→20:52)
[2018-08-21] MEDS ORDERED: PROPOFOL 10 MG/ML 20 ML VIAL IV ONE (08:00)
[2018-08-21] MEDS ORDERED: LIDOCAINE 1% INJ 10MG/ML (20 ML MDV) ONE (08:00)
[2018-08-21] MEDS: PANTOPRAZOLE 40 MG/10 ML VIAL IVP SCH ×2 (08:35→18:13)
--- NOTE | 2018-08-21 08:40 | P.PCN ---
Date of Procedure: 08/21/18 Procedure(s) Performed: Procedure: Esophagogastroduodenoscopy and biopsy. Preoperative diagnosis: Upper GI bleeding. Postoperative diagnosis: 1. Gastric ulcer along the angularis not actively bleeding at the time of this exam. 2. Minimal antral gastritis biopsies obtained to rule out H. pylori infection. 3. Sliding hiatal hernia with low- grade distal esophagitis but no mucosal tears or evidence of bleeding. Preparation sedation: Was provided by anesthesia. Brief clinical history: The patient is a 58-year-old male who was brought to the emergency room because of a fainting episode. The patient is from [place] and was visiting family in [place]. He started to vomit bright red blood and fainted and was brought to the emergency room for further evaluation. He was evaluated on Thursday back in [place] for upper GI bleeding and had an endoscopy with endoscopic intervention. The patient denied alcohol dependency or use of any specific medications. He had 2 margaritas before the onset of his symptoms prior to arriving to this emergency room. Apparently there was positive cocaine in his urine. CTA of the chest showed no evidence of pulmonary embolism. The esophagus and stomach were noted to be dilated. The patient had stayed in the emergency room overnight waiting his bed in the intensive care unit. He was transfused. His hemoglobin is stable this morning at 9.2, was 8.7 yesterday. Other details are summarized in the history and physical and dictated consultations and progress notes. Procedure: With the patient on his left lateral decubitus position and after informed consent and adequate sedation, I passed the Olympus-GIF 160 video upper endoscope through the cricopharyngeus down the esophagus. GE junction was around 36-37 cm from the incisors and there was a 2 cm sliding hiatal hernia. The distal esophagus showed an isolated linear erosion or 2 covered with white exudate but there was no ulcers, mucosal tears or bleeding. The endoscope was then passed into the stomach which was insufflated with air and inspected in detail including the retroflex view in the cardia. There was minimal mottling and erythema in the antrum and there was a 2-2.5 cm ulcer crater along the angularis covered with dark exudate but not showing any dark protuberances, clots or oozing of blood. Pyloric channel, duodenal bulb, post bulbar area and descending duodenum appeared within normal limits. All secretions in the esophagus, stomach and duodenum were clear or bilious in color and there was no evidence of active bleeding. I obtained biopsies from the antrum to rule out H. pylori infection then the endoscope was withdrawn. The patient tolerated the procedure well. Plan: The patient was reassured. Will allow bland diet and continue PPI. If the biopsies are positive for H. pylori will treat accordingly. Although the ulcer did not have any features of malignancy, I recommend repeat upper endoscopy in around 3 months to ascertain the healing of the ulcer and to assure the absence of malignancy.
[2018-08-21] MEDS: INSULIN ASPART 100 UNIT/ML 1 ML 10 ML VIAL SQ SCH ×4 (08:41→21:08)
[2018-08-21 08:52] LABS: Glucose,Whole Blood 125 mg/dL (75-99)
[2018-08-21 09:08] LABS: Anisocytosis Slight; Basophils % (A) 0 %; Eosinophils # (A) 0.1 k/uL (0-0.7); Eosinophils % (A) 0 %; HCT 23.9 % (39.0-53.0); HGB 7.9 gm/dL (13.0-17.5); Lymphocytes # (A) 1.8 k/uL (1.0-4.8); Lymphocytes % (A) 9 %; MCH 29.5 pg (25.0-35.0); MCV 89.4 fL (80.0-100.0); Monocytes # (A) 0.7 k/uL (0-1.0); Monocytes % (A) 3 %; Neutrophils # (A) 16.8 k/uL (1.3-7.7); Neutrophils % (A) 87 %; Platelet Count 127 k/uL (150-450); Poikilocytosis Slight; RBC 2.68 m/uL (4.30-5.90); RDW 19.3 % (11.5-15.5); WBC 19.4 k/uL (3.8-10.6)
[2018-08-21 09:41] LABS: ALT 28 U/L (21-72); AST 28 U/L (17-59); Albumin 2.2 g/dL (3.5-5.0); Alkaline Phosphatase 69 U/L (38-126); Anion Gap 2 mmol/L; Blood Urea Nitrogen 15 mg/dL (9-20); Calcium 8.1 mg/dL (8.4-10.2); Carbon Dioxide 24 mmol/L (22-30); Chloride 111 mmol/L (98-107); Glucose 127 mg/dL (74-99); Magnesium 1.6 mg/dL (1.6-2.3); Potassium 3.6 mmol/L (3.5-5.1); Sodium 137 mmol/L (137-145); Total Bilirubin 0.5 mg/dL (0.2-1.3); Total Protein 4.4 g/dL (6.3-8.2)
[2018-08-21] MEDS: SODIUM CHLORIDE 0.9% 1,000 ML IV SCH (09:45)
--- NOTE | 2018-08-21 11:29 | P.PN ---
Progress Note - Text Progress Note Date: 08/21/18 The patient has been hemodynamically stable. He has had no further evidence of GI bleed. He underwent EGD this morning. He is found have a nonbleeding antral ulcer. On exam is lesser stable. His evidence soft. Patient appears to have stopped his GI bleed with results. He'll be closely observed. We will follow with you.
[2018-08-21] MEDS ORDERED: Potassium Replacement Protocol 1 EACH MISC MISCELLANE PRN (11:50)
[2018-08-21] MEDS ORDERED: Magnesium Replacement Protocol 1 EACH MISC MISCELLANE PRN ×2 (11:50→11:51)
[2018-08-21] MEDS ORDERED: POTASSIUM CHLORIDE ER 20 MEQ TAB.ER PO SCH (12:00)
[2018-08-21 12:08] LABS: Glucose,Whole Blood 130 mg/dL (75-99)
--- NOTE | 2018-08-21 12:15 | P.PN ---
Subjective Progress Note Date: 08/21/18 Principal diagnosis: Acute upper GI bleeding This is a 58-year-old male, who presented to the emergency department on 08/19/2018 for evaluation of presyncopal episode, tachycardia, diaphoresis. Patient is in the area from [place] visiting his family, was recently hospitalized [facility] for evaluation of acute blood loss anemia related to a gastric ulcer. He underwent EGD on Thursday08/16/2018, he stated a bleeding gastric ulcer was found, and it was reportedly "fixed". He had been having vomiting for 2 weeks prior to his hospitalization with bright red blood, and dark stools. He states he had been taking indomethacin for his history of arthritis for 2 years. Other medical history includes hypertension, diabetes mellitus type 2, COPD, nicotine dependence, chronic and ongoing, . Patient does see a career transition specialist and [place], he wears 2 L of oxygen at bedtime as needed. Blood work showed WBC of 15.7, hemoglobin is 7.1, serum sodium 133, CO2 12, BUN of 21 and creatinine of 1.49. TRoponin was negative 1 , LFTs were unremarkable, urinalysis showed 4+ glucose, urine screen was positive for opiates, and cocaine. He denies any chronic EtOH use. In the emergency department she was transfused with 2 units of packed red blood cells, patient was tachycardic with a heart rate in the 140s BPM, and hypotensive with a blood pressure of 70/40, he was given 4 L of IV fluid boluses. Subsequent hemoglobin at midnight was 8.7. Patient was also febrile through the night, with a T-max of 102.[address] angios of the chest was negative for pulmonary embolism, but showed extensive pulmonary infiltrates throughout the lungs and bullous pulmonary emphysema. Chest x-ray showed pulmonary fibrosis, infiltrates at the lung bases. Patient does state he has pulmonary fibrosis. This morning patient was seen in the emergency department, resting on the gurney, denies any acute complaints, he remains tachycardic with a heart rate in the 120s, blood pressures are borderline 95/55, not requiring any vasopressor support at this time, denies any shortness of breath, chest pain, he has not had any solids of hematemesis, or melena since admission. Denies any abdominal pain, nausea. No cough, no chest congestion or phlegm production. No lightheadedness or dizziness. He is asking if he could make the trip home back to [place] today. He is awaiting to be evaluated by the GI specialist today and probably be boarded for EGD today. Patient was reevaluated today on 08/21/2018, remains in the ICU, he underwent EGD earlier this morning, and he was found to have gastric ulcer along with the angularis, but no active bleeding at the time of the exam. There was also minimal antral gastritis. Sliding hernia was also noted. And low-grade distal esophagitis. Considering the findings, patient will remain on Protonix, and considering the stability of his hemoglobin, I plan to transfer the patient out of the ICU today. Patient is hemodynamically stable, continues to have a central line in place, and that will be discontinued by nurses in the ICU before transfer. Hemoglobin today is 7.9. Patient received a total of 2 units of packed RBCs since admission. Objective - Vital Signs Vital signs: Vital Signs Temp 97.8 F 08/21/18 09:00 Pulse 92 08/21/18 11:12 Resp 20 08/21/18 09:00 BP 104/60 08/21/18 11:00 Pulse Ox 94 L 08/21/18 11:00 Intake & Output 08/20/18 08/21/18 08/21/18 18:59 06:59 18:59 Intake Total 750 840 Output Total 4775 1425 210 Balance -4775 -675 630 Weight 73.482 kg 74.7 kg Intake: IV 600 Sodium Chloride 0.9% 1, 150 000 ml @ 75 mls/hr IV . [id number] [facility] Rx#:[id number] Oral 750 240 Output: Urine 4775 1425 210 Other: Voiding Method Indwelling Catheter Indwelling Catheter - Exam Physical Exam: Revealed a 58-year-old male in no distress. Head: Atraumatic, normocephalic. HEENT:[Neck is supple.] [No neck masses.] [No thyromegaly.] [No JVD.] Chest: [Clear throughout, no crackles, no rhonchi, no wheezes.] Cardiac Exam: [Normal S1 and S2, no S3 gallop, no murmur.] Abdomen: [Soft, nontender, no megaly, no rebound, no guarding, normal bowel sounds.] Extremities: [No clubbing, no edema, no cyanosis.] Neurological Exam: [No focal neurologic deficit.] Psychiatric: Normal mood affect and mental status exam Skin: No rashes. - Labs CBC & Chem 7: 08/21/18 08:41 08/21/18 08:55 Labs: Abnormal Lab Results - Last 24 Hours (Table) 08/20/18 08/20/18 08/20/18 Range/Units 11:01 11:01 14:32 WBC 23.4 H (3.8-10.6) k/uL RBC 3.09 L (4.30-5.90) m/uL Hgb 9.2 L (13.0-17.5) gm/dL Hct 28.0 L (39.0-53.0) % RDW 19.4 H (11.5-15.5) % Plt Count (150-450) k/uL Neutrophils # 20.5 H (1.3-7.7) k/uL Chloride 112 H (98-107) mmol/L BUN 25 H (9-20) mg/dL Glucose 159 H (74-99) mg/dL POC Glucose (mg/dL) 174 H (75-99) mg/dL Calcium (8.4-10.2) mg/dL Total Protein 4.8 L (6.3-8.2) g/dL Albumin 2.6 L (3.5-5.0) g/dL 08/20/18 08/20/18 08/21/18 Range/Units 17:16 20:24 07:03 WBC (3.8-10.6) k/uL RBC (4.30-5.90) m/uL Hgb (13.0-17.5) gm/dL Hct (39.0-53.0) % RDW (11.5-15.5) % Plt Count (150-450) k/uL Neutrophils # (1.3-7.7) k/uL Chloride (98-107) mmol/L BUN (9-20) mg/dL Glucose (74-99) mg/dL POC Glucose (mg/dL) 149 H 215 H 153 H (75-99) mg/dL Calcium (8.4-10.2) mg/dL Total Protein (6.3-8.2) g/dL Albumin (3.5-5.0) g/dL 08/21/18 08/21/18 08/21/18 Range/Units 08:41 08:41 08:55 WBC 19.4 H (3.8-10.6) k/uL RBC 2.68 L (4.30-5.90) m/uL Hgb 7.9 L (13.0-17.5) gm/dL Hct 23.9 L (39.0-53.0) % RDW 19.3 H (11.5-15.5) % Plt Count 127 L (150-450) k/uL Neutrophils # 16.8 H (1.3-7.7) k/uL Chloride 111 H (98-107) mmol/L BUN (9-20) mg/dL Glucose 127 H (74-99) mg/dL POC Glucose (mg/dL) 125 H (75-99) mg/dL Calcium 8.1 L (8.4-10.2) mg/dL Total Protein 4.4 L (6.3-8.2) g/dL Albumin 2.2 L (3.5-5.0) g/dL 08/21/18 Range/Units 11:56 WBC (3.8-10.6) k/uL RBC (4.30-5.90) m/uL Hgb (13.0-17.5) gm/dL Hct (39.0-53.0) % RDW (11.5-15.5) % Plt Count (150-450) k/uL Neutrophils # (1.3-7.7) k/uL Chloride (98-107) mmol/L BUN (9-20) mg/dL Glucose (74-99) mg/dL POC Glucose (mg/dL) 130 H (75-99) mg/dL Calcium (8.4-10.2) mg/dL Total Protein (6.3-8.2) g/dL Albumin (3.5-5.0) g/dL Assessment and Plan Assessment: #1. Acute Hemorrhagic shock related to acute blood loss anemia secondary to acute GI bleeding, secondary to peptic ulcer disease #2. Recent hospitalization for upper GI bleeding, status post EGD and cauterization of a gastric ulcer #3. Presyncopal episode, tachycardia, hypotension dated to the above #4. Advanced COPD, oxygen and steroid dependent #5. Nicotine dependence, chronic and ongoing, currently down to quarter pack a day, carries [id number] smoking history #6. Acute kidney injury #7. Anion gap metabolic acidosis #8. Hypertension #9. Diabetes mellitus type 2 #10. Rheumatoid arthritis, and patient had been on indomethacin for 2 years prior to last episode of GI bleed #11. History of pulmonary fibrosis Plan: Continue present supportive care measures, patient will be transferred out of the ICU to a medical bed, and possibly consider discharge planning in the next 24-48 hours assuming he is cleared by gastroenterology for discharge. Time with Patient: Less than 30
[2018-08-21] MEDS: HYDROcodone/APAP 5-325MG 1 EACH TAB PO PRN ×2 (12:32→18:10)
[2018-08-21] MEDS: FINASTERIDE 5 MG TAB PO SCH (12:32)
[2018-08-21 13:27] VITALS: BMI 25.7
--- NOTE | 2018-08-21 13:39 | P.PN ---
Subjective Progress Note Date: 08/21/18 Principal diagnosis: Hemorrhagic shock Patient is feeling well today. He underwent EGD this morning. He was started on a diet. Blood pressure within acceptable range. Objective - Vital Signs Vital signs: Vital Signs Temp 97.8 F 08/21/18 09:00 Pulse 92 08/21/18 11:12 Resp 16 08/21/18 12:41 BP 127/80 08/21/18 12:41 Pulse Ox 96 08/21/18 12:41 Intake & Output 08/20/18 08/21/18 08/21/18 18:59 06:59 18:59 Intake Total 750 840 Output Total 4775 1425 210 Balance -4775 -675 630 Weight 73.482 kg 74.7 kg 74.7 kg Intake: IV 600 Sodium Chloride 0.9% 1, 150 000 ml @ 75 mls/hr IV . [id number] [facility] Rx#:[id number] Oral 750 240 Output: Urine 4775 1425 210 Other: Voiding Method Indwelling Catheter Indwelling Catheter - Exam General: The patient is awake and alert, in no distress Eye: there is normal conjunctiva bilaterally. Neck: The neck is supple, there is no JVD. Cardiovascular: Normal S1-S2, no S3-S4, no murmurs. Respiratory: Lungs clear to auscultation bilaterally Gastrointestinal: Abdomen is soft, nontender Musculoskeletal: There is no pedal edema. Neurological:. Speech is normal. Skin: Skin is warm and dry - Labs CBC & Chem 7: 08/21/18 08:41 08/21/18 08:55 Labs: Abnormal Lab Results - Last 24 Hours (Table) 08/20/18 08/20/18 08/20/18 Range/Units 14:32 17:16 20:24 WBC (3.8-10.6) k/uL RBC (4.30-5.90) m/uL Hgb (13.0-17.5) gm/dL Hct (39.0-53.0) % RDW (11.5-15.5) % Plt Count (150-450) k/uL Neutrophils # (1.3-7.7) k/uL Chloride (98-107) mmol/L Glucose (74-99) mg/dL POC Glucose (mg/dL) 174 H 149 H 215 H (75-99) mg/dL Calcium (8.4-10.2) mg/dL Total Protein (6.3-8.2) g/dL Albumin (3.5-5.0) g/dL 08/21/18 08/21/18 08/21/18 Range/Units 07:03 08:41 08:41 WBC 19.4 H (3.8-10.6) k/uL RBC 2.68 L (4.30-5.90) m/uL Hgb 7.9 L (13.0-17.5) gm/dL Hct 23.9 L (39.0-53.0) % RDW 19.3 H (11.5-15.5) % Plt Count 127 L (150-450) k/uL Neutrophils # 16.8 H (1.3-7.7) k/uL Chloride (98-107) mmol/L Glucose (74-99) mg/dL POC Glucose (mg/dL) 153 H 125 H (75-99) mg/dL Calcium (8.4-10.2) mg/dL Total Protein (6.3-8.2) g/dL Albumin (3.5-5.0) g/dL 08/21/18 08/21/18 Range/Units 08:55 11:56 WBC (3.8-10.6) k/uL RBC (4.30-5.90) m/uL Hgb (13.0-17.5) gm/dL Hct (39.0-53.0) % RDW (11.5-15.5) % Plt Count (150-450) k/uL Neutrophils # (1.3-7.7) k/uL Chloride 111 H (98-107) mmol/L Glucose 127 H (74-99) mg/dL POC Glucose (mg/dL) 130 H (75-99) mg/dL Calcium 8.1 L (8.4-10.2) mg/dL Total Protein 4.4 L (6.3-8.2) g/dL Albumin 2.2 L (3.5-5.0) g/dL Assessment and Plan Assessment: 1. Upper GI bleed: Status post EGD also actively bleeding. Biopsies obtained to rule out H. pylori. 2. Hemorrhagic shock: Resolved. 3. Acute blood loss anemia: Status post 2 units of PRBC transfusion. Now hemoglobin stabilized around 8 4. Acute kidney injury: Now resolved. Secondary to intravascular depletion. 5. History of peptic ulcer disease with recent EGD a week ago in [place]. Continue Protonix 6. History of essential hypertension continue to hold home blood pressure medicine given borderline low blood pressure 7. Type 2 diabetes we will continue sliding scale insulin 8. Substance abuse including cocaine: Counseled extensively to quit Patient is stable to be transferred out of the ICU. Start diet as directed by GI. Repeat lab work in the morning.
[2018-08-21] MEDS: MAGNESIUM SULFATE-D5W PMX 1 GM in DEXTROSE/WATER 1 100ML.BAG IVPB SCH ×2 (15:41→18:11)
[2018-08-21] MEDS ORDERED: guaiFENesin SYRUP 100MG/5ML 200 MG/10 ML CUP PO PRN (17:26)
[2018-08-21 17:30] LABS: Glucose,Whole Blood 316 mg/dL (75-99)
[2018-08-21 19:54] LABS: Glucose,Whole Blood 212 mg/dL (75-99)
[2018-08-21] MEDS ORDERED: DOXAZOSIN 2 MG TAB PO SCH (21:00)
[2018-08-21] MEDS ORDERED: QUEtiapine 50 MG TAB PO SCH (21:00)
[2018-08-22] MEDS: HYDROcodone/APAP 5-325MG 1 EACH TAB PO PRN (00:30)
[2018-08-22] MEDS: SODIUM CHLORIDE 0.9% 1,000 ML IV SCH (00:30)
[2018-08-22] MEDS: PANTOPRAZOLE 40 MG/10 ML VIAL IVP SCH (06:10)
[2018-08-22 07:14] LABS: Glucose,Whole Blood 172 mg/dL (75-99)
[2018-08-22 07:37] VITALS: BP 117/78; RESP 16; TEMP 97.9
[2018-08-22 07:48] LABS: Anisocytosis Slight; Basophils % (A) 0 %; Eosinophils # (A) 0.2 k/uL (0-0.7); Eosinophils % (A) 2 %; HCT 25.8 % (39.0-53.0); HGB 8.2 gm/dL (13.0-17.5); Hypochromasia Slight; Lymphocytes % (A) 19 %; MCH 29.1 pg (25.0-35.0); MCHC 31.8 g/dL (31.0-37.0); MCV 91.4 fL (80.0-100.0); Mean Platelet Volume 7.6; Monocytes # (A) 0.3 k/uL (0-1.0); Monocytes % (A) 3 %; Neutrophils # (A) 7.6 k/uL (1.3-7.7); Neutrophils % (A) 75 %; Platelet Count 128 k/uL (150-450); Poikilocytosis Slight; RBC 2.83 m/uL (4.30-5.90); WBC 10.2 k/uL (3.8-10.6)
[2018-08-22 08:02] LABS: ALT 28 U/L (21-72); AST 22 U/L (17-59); Albumin 2.3 g/dL (3.5-5.0); Alkaline Phosphatase 76 U/L (38-126); Anion Gap 4 mmol/L; Blood Urea Nitrogen 16 mg/dL (9-20); Calcium 7.9 mg/dL (8.4-10.2); Carbon Dioxide 24 mmol/L (22-30); Chloride 111 mmol/L (98-107); Glucose 160 mg/dL (74-99); Magnesium 2.2 mg/dL (1.6-2.3); Potassium 3.9 mmol/L (3.5-5.1); Sodium 139 mmol/L (137-145); Total Bilirubin 0.3 mg/dL (0.2-1.3); Total Protein 4.6 g/dL (6.3-8.2)
[2018-08-22] MEDS: IPRATROPIUM-ALBUTEROL 3 ML NEB INHALATION SCH (08:08)
[2018-08-22 08:11] VITALS: PULSE 100
[2018-08-22] MEDS: INSULIN ASPART 100 UNIT/ML 1 ML 10 ML VIAL SQ SCH (08:37)
[2018-08-22] MEDS: FINASTERIDE 5 MG TAB PO SCH (08:38)
[2018-08-22] MEDS ORDERED: METOPROLOL TARTRATE 25 MG TAB PO SCH (09:00)
[2018-08-22] MEDS ORDERED: predniSONE 10 MG TAB PO SCH (09:00)
--- NOTE | 2018-08-22 10:25 | P.PN ---
Progress Note - Text Progress Note Date: 08/22/18 The patient is doing well. He's had no further signs of GI bleed. He has no abdominal pain. On exam his vital signs are stable. His abdomen soft. Status post upper GI bleed from gastric ulcer. There is been no evidence of bleeding. Patient will be discharged home per medicine.
--- NOTE | 2018-08-22 11:31 | P.DS ---
Providers Date of admission: 08/19/18 17:26 Expected date of discharge: 08/22/18 Attending physician: Nehemias Medina MD Consults: 08/19/18 17:26 Consult Physician Routine Consulting Provider: Fabian Nunn Consult Reason/Comments: gib Do you want consulting provider notified?: Yes 08/19/18 17:30 Consult Physician Routine Consulting Provider: Ildefonso Byers Consult Reason/Comments: gib Do you want consulting provider notified?: Yes 08/19/18 18:33 Consult Physician Routine Consulting Provider: Rod Hernandez Consult Reason/Comments: GI bleed Do you want consulting provider notified?: Yes Primary care physician: Physician Nonstaff Hospital Course: This is a 58-year-old male who presented to the hospital with upper GI bleed and hemorrhagic shock. Patient was admitted to the ICU. He was managed aggressively with IV fluids and blood transfusion. Below is a list of his medical problems addressed during this hospitalization. 1. Upper GI bleed: Status post EGD with a gastric ulcer noted not actively bleeding. Biopsies obtained to rule out H. pylori. Follow-up with GI in 1 week for results. Will need repeat EGD within the next 6-8 weeks. 2. Hemorrhagic shock: Resolved. Blood pressure within acceptable range 3. Acute blood loss anemia: Status post 2 units of PRBC transfusion. Now hemoglobin stabilized around 8 4. Acute kidney injury: Now resolved. Secondary to intravascular depletion. 5. History of peptic ulcer disease with recent EGD a week ago in [place]. Continue Protonix 6. History of essential hypertension continue to hold home blood pressure medicine given borderline low blood pressure 7. Type 2 diabetes we will continue sliding scale insulin 8. Substance abuse including cocaine: Counseled extensively to quit 9. Severe COPD with chronic hypoxic respiratory failure on home O2 and daily prednisone Patient will be discharged home in a stable condition. He had a normal bowel movement today. His hemoglobin has stabilized. He was counseled about the importance to follow-up with his PCP to recheck his CBC within the next 3-5 days. Advised to return to the emergency room if any evidence of recurrent bleeds. Counseled extensively about stopping alcohol consumption. Counseled to discuss with his wing commander to wean him off of prednisone if possible. Patient Condition at Discharge: Fair Plan - Discharge Summary Discharge Rx Participant: No New Discharge Prescriptions: New Pantoprazole Sodium [Protonix] 40 mg PO DAILY #30 tablet. Continue predniSONE 10 mg PO DAILY Ferrous Sulfate [Iron (65 MG Elemental)] 325 mg PO BID Albuterol Inhaler [Ventolin Hfa Inhaler] 2 puff INHALATION RT-Q6H PRN PRN Reason: Shortness Of Breath Terazosin HCl 8 mg PO HS QUEtiapine [SEROquel] 50 mg PO HS Finasteride [Proscar] 5 mg PO DAILY metFORMIN HCL 500 mg PO BID Discontinued Metoprolol Tartrate [Lopressor] 25 mg PO DAILY Lisinopril-Hctz 10-12.5 mg [Zestoretic 10-12.5] 1 tab PO DAILY Cyclobenzaprine [Flexeril] 10 mg PO BID Discharge Medication List Albuterol Inhaler [Ventolin Hfa Inhaler] 2 puff INHALATION RT-Q6H PRN 08/19/18 [ History] Ferrous Sulfate [Iron (65 MG Elemental)] 325 mg PO BID 08/19/18 [History] Finasteride [Proscar] 5 mg PO DAILY 08/19/18 [History] QUEtiapine [SEROquel] 50 mg PO HS 08/19/18 [History] Terazosin HCl 8 mg PO HS 08/19/18 [History] metFORMIN HCL 500 mg PO BID 08/19/18 [History] predniSONE 10 mg PO DAILY 08/19/18 [History] Pantoprazole Sodium [Protonix] 40 mg PO DAILY #30 tablet. 08/22/18 [Rx] Follow up Appointment(s)/Referral(s): None,Stated [REFERRING] - 1-2 days Fabian Nunn MD [STAFF PHYSICIAN] - 1 Week Discharge Disposition: HOME SELF-CARE
== END 2018-08-22 11:50 | disposition home or self-care (01) | DRG 377 ==
LOC: EC 15:15 → 3SCARD 17:26 → 2SICU 18:34 → 4SSUR 08-21 12:22
PROVIDERS: ADMIT Family Medicine; ATTEND Family Medicine
PROC: 02HV33Z Insertion of Infusion Device into Superior Vena Cava, Percutaneous Approach (ICD-10-PCS; principal; 2018-08-19)
PROC: 30233N1 Transfusion of Nonautologous Red Blood Cells into Peripheral Vein, Percutaneous Approach (ICD-10-PCS; 2018-08-19)
PROC: 0DB78ZX Excision of Stomach, Pylorus, Via Natural or Artificial Opening Endoscopic, Diagnostic (ICD-10-PCS; 2018-08-21)
DX: K25.4 Chronic or unspecified gastric ulcer with hemorrhage (principal); R57.8 Other shock; D62 Acute posthemorrhagic anemia; E87.2 Acidosis; J96.11 Chronic respiratory failure with hypoxia; N17.9 Acute kidney failure, unspecified; E11.9 Type 2 diabetes mellitus without complications; F14.10 Cocaine abuse, uncomplicated; F17.210 Nicotine dependence, cigarettes, uncomplicated; Z71.51 Drug abuse counseling and surveillance of drug abuser; I10 Essential (primary) hypertension; J43.9 Emphysema, unspecified; J84.10 Pulmonary fibrosis, unspecified; K21.0 Gastro-esophageal reflux disease with esophagitis; K44.9 Diaphragmatic hernia without obstruction or gangrene; M06.9 Rheumatoid arthritis, unspecified; N40.0 Benign prostatic hyperplasia without lower urinary tract symptoms; T80.92XA Unspecified transfusion reaction, initial encounter; Y84.8 Other medical procedures as the cause of abnormal reaction of the patient, or of later complication, without mention of misadventure at the time of the procedure; Z79.4 Long term (current) use of insulin; Z79.52 Long term (current) use of systemic steroids; Z79.899 Other long term (current) drug therapy; Z82.5 Family history of asthma and other chronic lower respiratory diseases; Z83.3 Family history of diabetes mellitus; Z99.81 Dependence on supplemental oxygen; Z87.11 Personal history of peptic ulcer disease; Z87.01 Personal history of pneumonia (recurrent); R55 Syncope and collapse; Z79.84 Long term (current) use of oral hypoglycemic drugs; R51 Headache
CPT/HCPCS: 36415; 36556; 43239; 71045; 71275; 80053; 80306; 81003; 82009; 82550; 82553; 83690; 83735; 84484; 85025; 85610; 85730; 86850; 86880; 86900; 86901; 86920; 94640; 96361; 96374; 96375; 96376; 99291